=== PATIENT | male | born 1985 | race Caucasian/White ===

== ENCOUNTER 2016-07-26 23:15 | Inpatient (IN) | payer BC ==
--- NOTE | ~2016-07-26 | DS ---
Discharge Summary [facility] [address] [place]. [address] NAME: RADHA HENDERSON II : 81 STATUS : DIS IN PAT#: [id number] AGE: 30 ADM/REG DATE : 07/27/16 MR#: [id number] REPORT SERV DATE: 08/01/16 DICTATED BY: SAVANNA ESCOBARRADHA EDJULIETH DATE: 07/31/16 REPORT STATUS : Draft TRANSCRIBED BY: MODL DATE: 07/31/16 ADMISSION DATE: 07/27/2016 DISCHARGE DATE: 07/31/2016 DISCHARGE DIAGNOSES: 1. Acute pulmonary embolism with pleuritic chest pain. 2. Metastatic testicular cancer. 3. Acute hypoxic respiratory failure. 4. Pancytopenia secondary to chemotherapy. 5. Constipation, resolved. CONSULTS: Hernandez Ramos M.D. BRIEF HISTORY OF PRESENT ILLNESS: The patient is a 30-year-old male with the above history, who presented to [facility] due to severe uncontrolled chest pain and shortness of breath. He had previously been placed on Eliquis for a recently diagnosed PE but was admitted for pain control. For detailed history and physical examination, please see Dr. Shafer's note from 07/26/2016. HOSPITAL COURSE: After admission, the patient was provided with IV pain control and was requiring supplemental oxygen. His heart rate was in the 130s to 140s on admission. He was given fluids, switched to Lovenox, and monitored. Since then, he has been able to wean down off oxygen, his heart rate has come down, and his pain has markedly improved. He did have a repeat CT done which showed slightly increased density in the basilar right lower lobe compatible with progressive atelectasis or infiltrate. There is also some atelectasis and minimal infiltrate in the basilar left lower lobe and lingula. Stable nodular densities in the right middle lobe compatible with the patient's known pulmonary metastatic disease. Lower extremity Dopplers were unremarkable, and currently the patient is doing well. He did have to stay a few extra days due to abdominal distention and constipation. Currently, he is stable for discharge. DISCHARGE MEDICATIONS: 1. Marinol 2.5 mg p.o. t.i.d. 2. Dulcolax p.r.n. constipation. 3. Lovenox 90 mg subcu q.12 hours. 4. Protonix 40 mg p.o. daily. 5. Hycodan syrup p.r.n. cough. 6. Tessalon 200 mg p.o. t.i.d. p.r.n. cough. 7. Zofran p.r.n. 8. Compazine p.r.n. 9. Ativan 1 mg p.o. q.8 hours p.r.n. nausea and vomiting. DISCHARGE INSTRUCTIONS: The patient will follow with Dr. Ramos. Discharge Summary [address] [facility] [place] [address] NAME: RADHA HENDERSON II : 81 STATUS : DIS IN PAT#: [id number] AGE: 30 ADM/REG DATE : 07/27/16 MR#: [id number] REPORT SERV DATE: 08/01/16 DICTATED BY: RADHA CORRALES II DATE: 07/31/16 REPORT STATUS : Draft TRANSCRIBED BY: YVROSE DATE: 07/31/16 MAK/YVROSE Radah Corrales II, MD / [id number] CC: MD Damon Falk II, MD
--- NOTE | ~2016-07-26 | HP ---
History And Physical [place] [id number] [facility] [place]. [address] NAME: RADHA DE DIOS II : 81 STATUS : ADM IN PAT#: [id number] AGE: 30 ADM/REG DATE : 07/27/16 MR#: [id number] REPORT SERV DATE: 07/27/16 DICTATED BY: COOKIERADHA JAYCE DATE: 07/27/16 REPORT STATUS : Draft TRANSCRIBED BY: MODL DATE: 07/27/16 DATE OF ADMISSION: 07/26/2016 POINT OF ENTRY: [facility] Emergency Department. PRIMARY ONCOLOGIST: Dr. Hernandez Ramos. PRIMARY UROLOGIST: Dr. Steele. CHIEF COMPLAINT: Chest pain and shortness of breath. HISTORY OF PRESENT ILLNESS: Mr. De Dios is a 30-year-old gentleman with a history of metastatic testicular cancer with known metastases to the lung, currently undergoing chemotherapy under the care of Dr. Hernandez Ramos, who was recently diagnosed with bilateral acute pulmonary emboli and started on Eliquis therapy, who presents to the emergency department today for worsening chest pain and shortness of breath. The patient was seen in clinic by Dr. Ramos yesterday. At that time, the patient was reporting some dyspnea on exertion as well as some right-sided pleuritic chest pain. CTA of the chest was undertaken, which showed right middle lobe, right lower lobe, as well as some right upper lobe segmental pulmonary arteries as well as evidence of some clot burden also in the left lower lobe pulmonary arteries. The patient was started on Eliquis therapy at that time. The patient states he is taking a total of three doses of Eliquis for his acute bilateral PE. Today, he noted that he was having worsening shortness of breath, primarily described as dyspnea on exertion as well as worsening right-sided pleuritic chest pain. This prompted him to present to the emergency department after he and his noted his heart rate was elevated into the one-teens, much above his baseline heart rate. Initial evaluation in the emergency department is notable for stable blood pressure; however, he was noted to be tachycardic in the 140s, but saturating well on room air. He was also noted to be tachypneic. Labs are otherwise unremarkable. Troponin was negative. EKG showed sinus tachycardia with no evidence of any acute ischemia or infarction. Chest x- ray was clear. He was subsequently admitted to the Hospitalist Service for further evaluation and management. The patient denies any recent fevers, night sweats, chills, cough, sputum production, abdominal pain, nausea, vomiting, diarrhea, constipation, dysuria, lower extremity edema, melena, hematochezia, or hemoptysis. COMPREHENSIVE REVIEW OF SYSTEMS: Otherwise negative unless listed in history of present illness. PREVIOUS MEDICAL HISTORY: 1. Metastatic testicular cancer. History And Physical [address] [address] NAME: RADHA DE DIOS II : 83 STATUS : ADM IN PAT#: [id number] AGE: 30 ADM/REG DATE : 07/27/16 MR#: [id number] REPORT SERV DATE: 07/27/16 DICTATED BY: RADHA GARY DATE: 07/27/16 REPORT STATUS : Draft TRANSCRIBED BY: YVROSE DATE: 07/27/16 2. Solitary functional kidney, status post right renal artery compromise. 3. Acute bilateral PE. SURGICAL HISTORY: 1. Right inguinal orchiectomy. 2. Lymph node dissection complicated by renal artery compromise. ALLERGIES: NO KNOWN DRUG ALLERGIES. HOME MEDICATIONS: 1. Eliquis 10 mg b.i.d. for seven days, then 5 mg b.i.d. 2. Tessalon Perles 200 mg t.i.d. p.r.n. 3. Bleomycin chemotherapy every week. 4. Marinol 2.5 mg t.i.d. 5. Etoposide chemotherapy regimen. 6. Lorazepam 1 mg q.8 hours p.r.n. 7. Zofran 8 mg sublingual q.8 hours p.r.n. 8. Protonix 40 mg daily. 9. Compazine 10 mg q.4 hours p.r.n. 10.Cisplatin chemotherapy regimen. 11.Hycodan syrup 5 mL p.o. b.i.d. p.r.n. SOCIAL HISTORY: He denied any tobacco, alcohol, or illicits. He works as a retail account manager. FAMILY MEDICAL HISTORY: Mother is healthy. Father with history of hypertension and melanoma. Siblings are healthy. LABS AND IMAGIN. White count is 3.4, hemoglobin is 11.5, hematocrit is 31.6, platelet count is 313. INR 1.3. 2. Sodium is 137, potassium 4.5, chloride 100, carbon dioxide 26, BUN 20, creatinine 1.37, glucose is 108, calcium is 8.8, magnesium is 2.1. 3. Troponin is less than 0.02. 4. Chest x-ray per my review shows poor inspiration and low lung volumes, but no evidence of any focal infiltrate or consolidation. 5. CT of the chest from 07/25/2016, shows right middle lobe, right lower lobe, as well as right upper lobe segmental pulmonary artery emboli as well as some evidence of embolic burden in arteries serving the left lower lobe. PHYSICAL EXAMINATION: VITAL SIGNS: Temperature is 98.3 degrees Fahrenheit, pulse is 140, respirations 26, saturating 90% on room air. Blood pressure 126/77, on recheck blood pressure is now 125/87; heart rate is 115; saturating 100% on 2 L by nasal cannula. GENERAL: The patient is awake, alert, in no acute distress. Resting comfortably in bed. He is a well-developed, well-nourished male. is at bedside. HEENT: Atraumatic, normocephalic. Moist mucous membranes. Pupils are equal, round, History And Physical [address] [address] NAME: RADHA DE DIOS II : 81 STATUS : ADM IN [facility]#: [id number] AGE: 30 ADM/REG DATE : 07/27/16 MR#: [id number] REPORT SERV DATE: 07/27/16 DICTATED BY: RADHA GARY DATE: 07/27/16 REPORT STATUS : Draft TRANSCRIBED BY: MODL DATE: 07/27/16 reactive to light and accommodation. Extraocular eye movements intact. No scleral icterus. NECK: No jugular venous distention or carotid bruits. CARDIAC: Tachycardic rate, regular rhythm. No murmurs or gallops. Normal S1, S2. LUNGS: On oxygen, in no respiratory distress, but is mildly tachypneic. The patient has poor inspiratory lung volumes secondary to splinting and pain. I do not appreciate any wheezes, rhonchi, or crackles. ABDOMEN: Soft, nontender, nondistended with good bowel sounds. No rebound, guarding, or rigidity. EXTREMITIES: Warm and well perfused. No cyanosis, clubbing, or edema. SKIN: Warm and dry. PSYCH: Affect appropriate. NEURO: Alert and oriented x3. Cranial nerves 2 through 12 grossly intact. Speech is normal. Gait not assessed. ASSESSMENT: Mr. De Dios is a 30-year-old gentleman with a recent diagnosis of acute bilateral pulmonary embolus, who presents with worsening pleuritic chest pain and shortness of breath. PROBLEM LIST: 1. Acute bilateral pulmonary embolism. 2. Severe pleuritic chest pain and shortness of breath. 3. Solitary functional kidney. 4. Metastatic testicular cancer. PLAN: 1. Acute bilateral PE. We will admit the patient to the Hospitalist Service. We will convert his Eliquis over to subcu full-dose Lovenox given his history of malignancy. We will check an echocardiogram to evaluate for any RV strain or dysfunction. Given the patient's worsening pleuritic chest pain and shortness of breath, we will check a stat CT scan of the chest without IV contrast to evaluate for potential complication of his known PE such as pulmonary infarction with or without hemorrhagic compromise, but our main goal will be to address the patient's pain needs. 2. Metastatic testicular cancer, per Oncology. 3. Solitary functional kidney. Avoid nephrotoxic medications. The patient's GFR does allow him to be placed on Lovenox here during this hospitalization. 4. DVT prophylaxis. Therapeutic anticoagulation with Lovenox. CODE STATUS: The patient wished to be full code. LUCI/YVROSE Radha Gary MD / [id number] History And Physical [address] [address] NAME: RADHA DE DIOS II : 83 STATUS : ADM IN [facility]#: [id number] AGE: 30 ADM/REG DATE : 07/27/16 MR#: [id number] REPORT SERV DATE: 07/27/16 DICTATED BY: RADHA GARY DATE: 07/27/16 REPORT STATUS : Draft TRANSCRIBED BY: MODL DATE: 07/27/16 CC: Damon S. MD Hernandez Parikh M.D. Fabián Steele III, M.D.
[2016-07-26 22:11] LABS: BASOPHILS 0 %; EOSINOPHILS 0 %; HEMATOCRIT 31.6 % (40.0-51.0); HEMOGLOBIN 11.5 g/dL (13.6-17.8); IMMATURE GRANULOCYTES 0.3 %; IMMATURE GRANULOCYTES ABSOLUTE 0.01 10/3/uL (0.0-0.11); LYMPHOCYTES 14.3 %; LYMPHOCYTES ABSOLUTE 0.48 10/3/uL (0.67-4.30); MANUAL DIFF NO %; MEAN CORPUS HGB CONC 36.4 g/dL (32.0-36.0); MEAN CORPUSCULAR HEMOGLOB 30.5 pg (26.0-34.0); MEAN CORPUSCULAR VOLUME 83.8 fL (80-100); MEAN PLATELET VOLUME 8.6 fL (9.2-13.0); MONOCYTES 4.2 %; MONOCYTES ABSOLUTE 0.14 10/3/uL (0.21-1.20); NEUTROPHILS 81.2 %; NEUTROPHILS ABSOLUTE 2.72 10/3/uL (2.02-8.40); PLATELET COUNT 313 10/3/uL (150-400); RBC DISTRIBUTION WIDTH 13.5 % (12.0-16.0); RED CELL COUNT 3.77 10/6/uL (4.7-6.1); WHITE BLOOD CELLS 3.4 10/3/uL (4.5-10.5)
[2016-07-26 22:23] LABS: INTERNATIONAL NORMAL RATI 1.3 UNITS (-); PARTIAL THROMBO TIME 27.2 SEC (22.5-37.2); PROTIME (NOT ORD) 15.6 SEC (12.0-14.5)
[2016-07-26 22:28] LABS: CALCIUM, SERUM 8.8 MG/DL (8.5-10.4); CHEST PAIN PROFILE TAT 0 Hrs 23 Mins; CHLORIDE, SERUM 100 MMOL/L (96-112); CO2 (CARBON DIOXIDE) 26 MMOL/L (24-34); CREATININE 1.37 MG/DL (0.70-1.30); GFR AFRICAN AMERICAN 79 ML/MIN (>=60); GFR NON AFRICAN AMERICAN 68 ML/MIN (>=60); GLUCOSE, SERUM 108 MG/DL (60-99); POTASSIUM, SERUM 4.5 MMOL/L (3.5-5.3); SODIUM, SERUM 137 MMOL/L (135-148); TROPONIN I <0.02 NG/ML (<0.05)
[2016-07-26 22:29] LABS: BUN (BLOOD UREA NITROGEN) 20 MG/DL (6-23)
[~2016-07-26 23:15] MED LIST: BLEOMYCIN IV; CISPLATIN IV; ELIQUIS 5 MG TAB5 MG PO; ETOPOPHOS100 MG IV; HYCODAN SYRUP PO; LEVAQUIN5T PO; MOTRIN IB200 MG PO; NORCO1 TAB PO; PR25 PO; PROTONIX PO; ULTRAM50 PO
[2016-07-26] MEDS ORDERED: TESSALON200 MG PO (23:16)
[2016-07-26] MEDS ORDERED: ZOFRANODT8 SL (23:16)
[2016-07-26] MEDS ORDERED: COMP10B PO (23:17)
[2016-07-26] MEDS ORDERED: ATV1 PO (23:18)
[2016-07-26] MEDS ORDERED: MARI2.5 PO (23:25)
[2016-07-26] MEDS ORDERED: AUG875 PO (23:25)
[2016-07-26] MEDS ORDERED: ELIQUIS 5 MG TAB5 MG PO (23:29)
[2016-07-27 05:36] LABS: BASOPHILS 0 %; EOSINOPHILS 0 %; HEMATOCRIT 26.3 % (40.0-51.0); HEMOGLOBIN 9.2 g/dL (13.6-17.8); LYMPHOCYTES 19.7 %; LYMPHOCYTES ABSOLUTE 0.41 10/3/uL (0.67-4.30); MANUAL DIFF NO %; MEAN CORPUSCULAR HEMOGLOB 29.7 pg (26.0-34.0); MEAN CORPUSCULAR VOLUME 84.8 fL (80-100); MEAN PLATELET VOLUME 8.7 fL (9.2-13.0); MONOCYTES 7.2 %; MONOCYTES ABSOLUTE 0.15 10/3/uL (0.21-1.20); NEUTROPHILS 73.1 %; NEUTROPHILS ABSOLUTE 1.52 10/3/uL (2.02-8.40); PLATELET COUNT 254 10/3/uL (150-400); RBC DISTRIBUTION WIDTH 13.6 % (12.0-16.0); WHITE BLOOD CELLS 2.1 10/3/uL (4.5-10.5)
[2016-07-27 05:43] LABS: BUN (BLOOD UREA NITROGEN) 23 MG/DL (6-23); CALCIUM, SERUM 8.5 MG/DL (8.5-10.4); CHLORIDE, SERUM 105 MMOL/L (96-112); CO2 (CARBON DIOXIDE) 25 MMOL/L (24-34); CREATININE 1.23 MG/DL (0.70-1.30); GFR AFRICAN AMERICAN 89 ML/MIN (>=60); GFR NON AFRICAN AMERICAN 77 ML/MIN (>=60); GLUCOSE, SERUM 107 MG/DL (60-99); POTASSIUM, SERUM 4.2 MMOL/L (3.5-5.3); SODIUM, SERUM 137 MMOL/L (135-148)
[2016-07-29 06:40] LABS: HEMATOCRIT 25.6 % (40.0-51.0); MEAN CORPUS HGB CONC 35.2 g/dL (32.0-36.0); MEAN CORPUSCULAR HEMOGLOB 29.4 pg (26.0-34.0); MEAN CORPUSCULAR VOLUME 83.7 fL (80-100); MEAN PLATELET VOLUME 8.9 fL (9.2-13.0); RBC DISTRIBUTION WIDTH 13.4 % (12.0-16.0); RED CELL COUNT 3.06 10/6/uL (4.7-6.1)
[2016-07-29 06:46] LABS: MANUAL DIFF YES %; PLATELET COUNT 170 10/3/uL (150-400); WHITE BLOOD CELLS 0.8 10/3/uL (4.5-10.5)
[2016-07-29 06:53] LABS: BUN (BLOOD UREA NITROGEN) 20 MG/DL (6-23); CALCIUM, SERUM 9.1 MG/DL (8.5-10.4); CHLORIDE, SERUM 101 MMOL/L (96-112); CO2 (CARBON DIOXIDE) 25 MMOL/L (24-34); CREATININE 1.17 MG/DL (0.70-1.30); GFR AFRICAN AMERICAN 95 ML/MIN (>=60); GFR NON AFRICAN AMERICAN 82 ML/MIN (>=60); GLUCOSE, SERUM 119 MG/DL (60-99); POTASSIUM, SERUM 4.2 MMOL/L (3.5-5.3); SODIUM, SERUM 136 MMOL/L (135-148)
[2016-07-29 07:49] LABS: BAND NEUTROPHILS 10 %; LYMPHOCYTES 23 %; LYMPHOCYTES ABSOLUTE (CALC) 0.18 10/3/uL (0.67-4.30); MONOCYTES 8 %; MONOCYTES ABSOLUTE (CALC) 0.06 10/3/uL (0.21-1.20); NEUTROPHILS ABSOLUTE (CALC) 0.55 10/3/uL (2.02-8.40); PLATELET ESTIMATE ADQ (ADEQUATE); RBC MORPHOLOGY NORM (NORMAL); SEGMENTED NEUTROPHIL (0) 60 %; TOTAL NUCLEATED CELLS 52
[2016-07-30 06:17] LABS: HEMOGLOBIN 8.3 g/dL (13.6-17.8); MEAN CORPUS HGB CONC 36.4 g/dL (32.0-36.0); MEAN CORPUSCULAR HEMOGLOB 30.3 pg (26.0-34.0); MEAN CORPUSCULAR VOLUME 83.2 fL (80-100); MEAN PLATELET VOLUME 9.2 fL (9.2-13.0); PLATELET COUNT 158 10/3/uL (150-400); RBC DISTRIBUTION WIDTH 13.7 % (12.0-16.0); RED CELL COUNT 2.74 10/6/uL (4.7-6.1)
[2016-07-30 06:22] LABS: HEMATOCRIT 22.8 % (40.0-51.0); MANUAL DIFF YES %; WHITE BLOOD CELLS 0.6 10/3/uL (4.5-10.5)
[2016-07-30 06:32] LABS: BUN (BLOOD UREA NITROGEN) 20 MG/DL (6-23); CALCIUM, SERUM 8.9 MG/DL (8.5-10.4); CHLORIDE, SERUM 102 MMOL/L (96-112); CO2 (CARBON DIOXIDE) 26 MMOL/L (24-34); CREATININE 1.11 MG/DL (0.70-1.30); GFR AFRICAN AMERICAN 101 ML/MIN (>=60); GFR NON AFRICAN AMERICAN 87 ML/MIN (>=60); POTASSIUM, SERUM 3.8 MMOL/L (3.5-5.3); SODIUM, SERUM 138 MMOL/L (135-148)
[2016-07-30 06:34] LABS: GLUCOSE, SERUM 92 MG/DL (60-99)
[2016-07-30 07:51] LABS: LYMPHOCYTES 31 %; LYMPHOCYTES ABSOLUTE (CALC) 0.19 10/3/uL (0.67-4.30); MONOCYTES 11 %; MONOCYTES ABSOLUTE (CALC) 0.07 10/3/uL (0.21-1.20); NEUTROPHILS ABSOLUTE (CALC) 0.35 10/3/uL (2.02-8.40); SEGMENTED NEUTROPHIL (0) 58 %; TOTAL NUCLEATED CELLS 100
[2016-07-30 07:52] LABS: PLATELET ESTIMATE ADQ (ADEQUATE); RBC MORPHOLOGY NORM (NORMAL)
[2016-07-31] MEDS ORDERED: BIST PO (10:51)
[2016-07-31] MEDS ORDERED: LOVENOX1C SC (10:55)
[2016-08-01] MEDS ORDERED: DIL2TAB PO (23:37)
[2017-01-25] MEDS ORDERED: PR25 PO (10:44)
[2017-01-25] MEDS ORDERED: NORCO1 TAB PO (10:46)
== END 2016-07-31 13:46 | disposition home or self-care (01) | DRG 175 ==
LOC: ER 23:15 → 5NO 07-27 00:52
PROVIDERS: Emergency Medicine; Internal Medicine
DX: I26.99 Other pulmonary embolism without acute cor pulmonale (principal); J96.01 Acute respiratory failure with hypoxia; D61.810 Antineoplastic chemotherapy induced pancytopenia; C78.00 Secondary malignant neoplasm of unspecified lung; Z85.47 Personal history of malignant neoplasm of testis; Z82.49 Family history of ischemic heart disease and other diseases of the circulatory system; Z79.899 Other long term (current) drug therapy; Z98.890 Other specified postprocedural states
CPT/HCPCS: 71010; 71250; 71275; 74000; 80048; 83735; 84484; 85025; 85610; 85730; 93005; 93306; 93970; 96372; 96374; 96375; 99285; A9270-GY; J1170; J1885; J2405; Q9967

== ENCOUNTER 2016-08-01 23:15 | Inpatient (IN) | payer BC ==
--- NOTE | ~2016-08-01 | HP ---
History And Physical [place] [address] [facility] [place]. [address] NAME: RADHA HENDERSON II : 81 STATUS : ADM IN [facility]#: [id number] AGE: 30 ADM/REG DATE : 08/01/16 MR#: [id number] REPORT SERV DATE: 08/02/16 DICTATED BY: KEMAR BALDERAS DATE: 08/02/16 REPORT STATUS : Draft TRANSCRIBED BY: MODEsthela DATE: 08/02/16 DATE OF ADMISSION: 08/01/2016 POINT OF ENTRY: [facility] Emergency Department, direct admit to the Oncology 5 East floor. PRIMARY ONCOLOGIST: Hernandez Ramos M.D. PRIMARY UROLOGIST: Fabián Steele M.D. CHIEF COMPLAINT: Fever. HISTORY OF PRESENT ILLNESS: This is a 30-year-old gentleman with medical history of metastatic testicular cancer with known metastasis to the lungs, currently undergoing chemotherapy who was recently discharged from the hospital on 07/31/2016. During that admission, he was found to have acute bilateral PE. The patient was switched from Eliquis to Lovenox and subsequently discharged home. The patient reports that he was doing okay. He went to his primary oncologist on the morning of presentation where he was administered a chemotherapy. The patient was found a repeat lab after chemotherapy noted the patient to have WBC of 0.5. The patient was advised that if he develops high fever, to come to the emergency room department. The patient reports that after getting home, he continued to have worsening cough, productive of yellowish sputum. There was associated fever and shortness of breath. The patient reports that the temperature was about 101 at home, hence, the decided to bring the patient into the hospital for further evaluation. There was no associated dysuria, frequency, or urgency. No abdominal pain. No nausea. No vomiting. The patient reports constipation but denies any diarrhea, nausea, or vomiting. The patient also denies any nasal congestion. Denies any headache, neck stiffness. Denies any history of contact with any patient with acute febrile illness. PAST MEDICAL HISTORY: 1. Acute bilateral PE, currently on Lovenox. 2. Metastatic testicular cancer, on chemotherapy. 3. Pancytopenia. 4. Constipation. 5. History of solitary functioning kidney, status post right renal artery stenosis. PAST SURGICAL HISTORY: 1. Right inguinal orchiectomy. 2. Lymph node dissection complicated by renal artery compromise. ALLERGIES: NO KNOWN DRUG ALLERGIES. HOME MEDICATIONS: 1. Bleomycin 30 units IV every seven days, administered on Monday by [facility]. History And Physical [address] [address] NAME: RADHA HENDERSON II : 83 STATUS : ADM IN PAT#: [id number] AGE: 30 ADM/REG DATE : 08/01/16 MR#: [id number] REPORT SERV DATE: 08/02/16 DICTATED BY: KEMAR BALDERAS DATE: 08/02/16 REPORT STATUS : Draft TRANSCRIBED BY: YVROSE DATE: 08/02/16 2. Etoposide phosphate mg IV daily times five days, every 21 days. 3. Cisplatin mg IV daily for five days, every 21 days. 4. Hycodan syrup 5 mL p.o. b.i.d. p.r.n. for cough. 5. Protonix 40 mg p.o. daily. 6. Benzoate 200 mg p.o. b.i.d. 7. Ondansetron 8 mg p.o. every eight hours. 8. Compazine 10 mg p.o. every four hours p.r.n. 9. Lorazepam 1 mg p.o. every eight hours p.r.n. 10.Marinol 2.5 mg p.o. t.i.d. 11.Dulcolax 10 mg p.o. b.i.d. p.r.n. 12.Lovenox 100 mg per meal, 90 mg subcu b.i.d. 13.Dilaudid 2 mg tab p.o. every six hours p.r.n. 14.Per the the patient also takes dexamethasone 4 mg p.o. b.i.d. to be taken for six days postchemotherapy. SOCIAL HISTORY: Denies smoking cigarettes, drinking alcohol, or illicit drug use. The patient works as a retail store assistant, currently lives with his at home, who was at the bedside at the time of this interview. FAMILY HISTORY: Significant for mother who is healthy, father with history of hypertension and melanoma, siblings are healthy. REVIEW OF SYSTEMS: A 12-point review of systems performed essentially negative, positive findings as per HPI. PHYSICAL EXAMINATION: VITAL SIGNS: Temperature 102.3, blood pressure 113/63, pulse rate 135 beats per minute, respiratory rate 94 on room air. GENERAL: Lying in bed in mild respiratory distress with mild pain distress. HEENT: Normocephalic, atraumatic. Extraocular muscle intact. Pupils equal, round, and reactive. Not pale. Anicteric. Not jaundiced. NECK: Supple with submandibular lymphadenopathy. No JVD. Oral mucosa moist. CHEST: Equal expansion. LUNGS: Diffuse expiratory wheezes with rhonchi at the lower lung base. CARDIOVASCULAR: Regular rate and rhythm. S1 and S2. No murmur. No rubs. No gallops. Tachycardic. ABDOMEN: Bowel sounds hypoactive, distended. No palpably enlarged organomegaly. EXTREMITIES: Lower extremities, no pedal edema. Peripheral pulses palpable. NEUROLOGIC: Alert and oriented x3. Cranial nerves II through XII intact. Strength in all extremities 5/5. LABORATORY DATA: 1. WBC, chemistry, procalcitonin, lactate, blood culture x2, sputum culture x2, hematology, urinalysis/reflex urine culture ordered. 2. Chest x-ray ordered, KUB ordered. SUMMARY: This is a 30-year-old gentleman with medical history significant for metastatic History And Physical [address] [address] NAME: RADHA HENDERSON II : 81 STATUS : ADM IN [facility]#: [id number] AGE: 30 ADM/REG DATE : 08/01/16 MR#: [id number] REPORT SERV DATE: 08/02/16 DICTATED BY: KEMAR BALDERAS DATE: 08/02/16 REPORT STATUS : Draft TRANSCRIBED BY: YVROSE DATE: 08/02/16 testicular cancer with acute PE, on Lovenox, who presented to the hospital with complaints of neutropenia and fever concerning for neutropenic fever, found to have cough productive of yellow sputum, also concerning for possible healthcare-associated pneumonia. ASSESSMENT AND PLAN: 1. Neutropenic sepsis, likely source questionable healthcare-associated pneumonia. The patient presented with cough productive of yellowish sputum. At this point, we will obtain a chest x-ray. We will obtain blood cultures. We will obtain a WBC. I will start the patient on broad-spectrum empiric antibiotics with vancomycin and cefepime after blood cultures taken. Sputum cultures have been ordered. Urine Legionella and urine streptococcal antigen ordered. We will continue oxygen supplementation at this time. We will continue incentive spirometry and duo nebs as needed p.r.n. 2. Acute bilateral pulmonary embolism. We will continue the patient's home dose of Lovenox. 3. Testicular cancer. We will defer continuous management to primary oncologist. 4. Constipation. We will order a KUB. We will encourage the patient to have laxatives as ordered. 5. History of pancytopenia. We will repeat the patient's Hematology to assess the level of anemia. We will also type and screen at this time. 6. Admission Disposition: [facility]. 7. Admission Status: Inpatient. 8. DVT Prophylaxis: Contraindicated as the patient is currently on anticoagulation. 9. Code Status: Full code. IOO/MODL Kemar Balderas MD / [id number] CC: MD Fabián Falk II, III, M.D. Davey B. Daniel, M.D.
--- NOTE | ~2016-08-01 | PUL ---
[place] [address] [place]. [address] NAME: RADHA HENDERSON II : 81 STATUS : ADM IN [facility]#: [id number] AGE: 30 ADM/REG DATE : 08/01/16 MR#: [id number] REPORT SERV DATE: 08/05/16 DICTATED BY: PENG HAND DATE: 08/05/16 REPORT STATUS : Draft TRANSCRIBED BY: MODL DATE: 08/05/16 PULMONARY FUNCTION TEST DIAGNOSIS: Pulmonary embolism. PROCEDURE: Spirometry and DLCO. DESCRIPTION: The patient's effort is adequate. Spirogram ratio is 0.82. FEV1 1.62 L or 38% and FVC 1.97 L or 37%. DLCO is 5.7 or 16% and it does not completely correct for alveolar volume. The patient had a good patient effort, but had some breathing difficulty due to pain. This was done as an inpatient. IMPRESSION: No evidence of large airways obstruction. Possible lung restriction and severely reduced DLCO. However, interpret numbers with caution since there appears to be a suboptimal effort due to a very non-smooth contour of both the expiratory and inspiratory limbs. CEP/MODL Peng Hand DO / [id number] CC: MD ASHLYN Pearl SHAGUFTA YASMIN Davey B. Daniel, M.D.
--- NOTE | ~2016-08-01 | DS ---
Discharge Summary [facility] [address] [facility] [place]. [address] NAME: RADHA HENDERSON II : 81 STATUS : DIS IN PAT#: [id number] AGE: 30 ADM/REG DATE : 08/01/16 MR#: [id number] REPORT SERV DATE: 08/06/16 DICTATED BY: MARTIN ESTRELLA DATE: 08/06/16 REPORT STATUS : Draft TRANSCRIBED BY: MODL DATE: 08/06/16 ADMISSION DATE: 08/01/2016 DISCHARGE DATE: 08/06/2016 CHIEF COMPLAINT ON ADMISSION: Fever. DISCHARGING DIAGNOSES: 1. Febrile neutropenia. 2. Left lower lobe pneumonia due to Moraxella. 3. Sepsis on admission, likely due to pneumonia. 4. Pulmonary embolism of the right lung. 5. Pleuritic chest pain on the left and dyspnea on exertion. 6. Metastatic testicular cancer. 7. Constipation. 8. Anemia. HISTORY OF PRESENT ILLNESS: Please see full H and P by Dr. Uribe from admission. HOSPITAL COURSE: 1. Febrile neutropenia with sepsis and left lower lobe pneumonia due to Moraxella. The patient was treated initially with empiric antibiotics with cefepime. Later, sputum culture did come back with Moraxella and his white count did resolve. He is no longer neutropenic. We will treat him with a p.o. course of Levaquin for a complete course of seven days. 2. Pulmonary embolism. The patient will be discharged on Eliquis. He was on Lovenox while hospitalized. 3. Pleuritic chest pain, likely due to left lower lobe pneumonia. The patient has also had dyspnea on exertion. This is all likely related to his pneumonia. He has been treated with narcotics as well as Toradol and steroids. Currently, his pain is better and he is stable for discharge home. 4. Metastatic testicular cancer. Follow up with Dr. Ramos as an outpatient. 5. Constipation. He will be discharged home pending bowel movement for today. 6. Anemia. The patient has been anemic in the low 7s. He did not require any transfusions. His hemoglobin is stable at this time at 7.6. He may follow up with Dr. Ramos and follow with counts. DISCHARGE MEDICATIONS: 1. Marinol 2.5 p.o. t.i.d. 2. Dexamethasone 4 mg p.o. b.i.d. for two days, then 4 mg once daily for two days, then stop. 3. Levofloxacin 750 mg p.o. daily for four days. 4. Protonix 40 mg daily. 5. Tessalon Perles p.r.n. 6. Zofran p.r.n. 7. Hycodan syrup p.r.n. cough. 8. Compazine p.r.n. Discharge Summary [address] [address] NAME: RADHA HENDERSON II : 81 STATUS : DIS IN PAT#: [id number] AGE: 30 ADM/REG DATE : 08/01/16 MR#: [id number] REPORT SERV DATE: 08/06/16 DICTATED BY: MARTIN ESTRELLA DATE: 08/06/16 REPORT STATUS : Draft TRANSCRIBED BY: YVROSE DATE: 08/06/16 9. Ativan p.r.n. 10.Dulcolax p.r.n. 11.Dilaudid p.r.n. 12.Eliquis 5 mg p.o. b.i.d. PERTINENT IMAGING IN THIS ADMISSION: 1. Echocardiogram: Left ventricular systolic function, intact at 51%, left ventricular diastolic function intact. Normal right ventricle size and function. No significant valvular dysfunction. CT chest on 08/04/2016, impression; no evidence of pulmonary fibrosis. 2. Interval development of segmental consolidation in the dependent left lung, new since prior exam from eight days earlier and mild right basilar subsegmental atelectasis. New trace pleural effusion as well. 3. Stable lateral right middle lobe pulmonary nodules, largest measuring 1.5 cm x 1.2 cm. 4. Small pericardial effusion. 5. Incompletely visualized supraumbilical ventral wall hernia containing a portion of bowel. 6. Known right hilar 11R adenopathy. It is difficult to delineate on this noncontrast exam. Last chest x-ray on 08/03/2016, impression; shallow inspiration with minimal basilar atelectasis, left greater than right. Otherwise, no acute cardiopulmonary abnormality. Left lower extremity Doppler is negative for DVT. PERTINENT LABORATORY DATA: At the time of discharge, white blood cell count 18.9, hemoglobin 7.6, platelet count of 300. BMP grossly unremarkable, except for creatinine of 1.2. Time spent on this discharge is greater than 30 minutes. DNK/MODL Martin Estrella MD / [id number] CC: MD ASHLYN Pearl SHAGUFTA YASMIN
[~2016-08-01 23:15] MED LIST changes: +ATV1 PO; +AUG875 PO; +BIST PO; +COMP10B PO; +LOVENOX1C SC; +MARI2.5 PO; +TESSALON200 MG PO; +ZOFRANODT8 SL
[2016-08-01] MEDS ORDERED: DIL2TAB PO (23:37)
[2016-08-02 01:04] LABS: HEMATOCRIT 24.1 % (40.0-51.0); HEMOGLOBIN 8.7 g/dL (13.6-17.8); MEAN CORPUS HGB CONC 36.1 g/dL (32.0-36.0); MEAN CORPUSCULAR HEMOGLOB 30.2 pg (26.0-34.0); MEAN CORPUSCULAR VOLUME 83.7 fL (80-100); MEAN PLATELET VOLUME 9.3 fL (9.2-13.0); PLATELET COUNT 173 10/3/uL (150-400); RBC DISTRIBUTION WIDTH 13.8 % (12.0-16.0); RED CELL COUNT 2.88 10/6/uL (4.7-6.1)
[2016-08-02 01:06] LABS: MANUAL DIFF YES %
[2016-08-02 01:14] LABS: A/G RATIO 0.7 (0.7-1.9); ALBUMIN 3.2 G/DL (3.5-5.0); ALKALINE PHOSPHATASE 55 U/L (45-117); CALCIUM, SERUM 8.9 MG/DL (8.5-10.4); CHLORIDE, SERUM 99 MMOL/L (96-112); CO2 (CARBON DIOXIDE) 24 MMOL/L (24-34); GFR AFRICAN AMERICAN 70 ML/MIN (>=60); GFR NON AFRICAN AMERICAN 61 ML/MIN (>=60); GLOBULIN 4.3 G/DL (2.5-4.1); GLUCOSE, SERUM 103 MG/DL (60-99); POTASSIUM, SERUM 3.7 MMOL/L (3.5-5.3); SGOT(AST) 7 U/L (5-40); SGPT(ALT) 26 U/L (5-65); SODIUM, SERUM 136 MMOL/L (135-148); TOTAL PROTEIN 7.5 G/DL (6.0-8.5)
[2016-08-02 01:16] LABS: BUN (BLOOD UREA NITROGEN) 13 MG/DL (6-23)
[2016-08-02 01:36] LABS: LYMPHOCYTES 50 %; MONOCYTES 30 %; SEGMENTED NEUTROPHIL (0) 20 %; TOTAL NUCLEATED CELLS 10
[2016-08-02 01:37] LABS: PLATELET ESTIMATE ADQ (ADEQUATE); RBC MORPHOLOGY NORM (NORMAL)
[2016-08-02 01:46] LABS: PROCALCITONIN 0.54 ng/mL (<0.5)
[2016-08-02 02:42] LABS: INFLUENZA A SCREEN NEGATIVE (NEGATIVE); INFLUENZA B SCREEN NEGATIVE (NEGATIVE)
[2016-08-02 04:58] LABS: FREE T4 1.77 NG/DL (0.76-1.46); PHOSPHORUS, SERUM 2.4 MG/DL (2.5-4.5); ULTRASENSITIVE TSH 0.361 MCIU/ML (0.358-3.740)
[2016-08-02 06:56] LABS: ASCORBIC ACID (UR NOT ORDER) NEG (NEG); BILIRUBIN, URINE NEGATIVE (NEG); KETONE, URINE NEGATIVE (NEG); LEUKOCYTE ESTERASE(NOT OR NEG (NEG); WBC (NOT ORDERED) (RFLEX) 8 (0-5)
[2016-08-03 06:40] LABS: MEAN CORPUS HGB CONC 36.3 g/dL (32.0-36.0); MEAN CORPUSCULAR HEMOGLOB 29.7 pg (26.0-34.0); MEAN PLATELET VOLUME 9.5 fL (9.2-13.0); NUCLEATED RED BLOOD CELLS 2.3 /100WBC (0-0); PLATELET COUNT 171 10/3/uL (150-400); RBC DISTRIBUTION WIDTH 14.4 % (12.0-16.0)
[2016-08-03 06:41] LABS: BUN (BLOOD UREA NITROGEN) 16 MG/DL (6-23); CHLORIDE, SERUM 101 MMOL/L (96-112); CO2 (CARBON DIOXIDE) 25 MMOL/L (24-34); GLUCOSE, SERUM 111 MG/DL (60-99); HEMATOCRIT 18.2 % (40.0-51.0); HEMOGLOBIN 6.6 g/dL (13.6-17.8); POTASSIUM, SERUM 4.3 MMOL/L (3.5-5.3); RED CELL COUNT 2.22 10/6/uL (4.7-6.1); SODIUM, SERUM 133 MMOL/L (135-148)
[2016-08-03 06:42] LABS: CALCIUM, SERUM 9.1 MG/DL (8.5-10.4); CREATININE 0.97 MG/DL (0.70-1.30); GFR AFRICAN AMERICAN 119 ML/MIN (>=60); GFR NON AFRICAN AMERICAN 103 ML/MIN (>=60)
[2016-08-03 06:43] LABS: MANUAL DIFF YES %; WHITE BLOOD CELLS 1.7 10/3/uL (4.5-10.5)
[2016-08-03 08:02] LABS: BAND NEUTROPHILS 7 %; IMMATURE GRANS ABSOLUTE (CALC) 0.03 10/3/uL (0.0-0.11); LYMPHOCYTES 12 %; METAMYELOCYTES 2 %; MONOCYTES 29 %; MONOCYTES ABSOLUTE (CALC) 0.49 10/3/uL (0.21-1.20); NEUTROPHILS ABSOLUTE (CALC) 0.97 10/3/uL (2.02-8.40); PLATELET ESTIMATE ADQ (ADEQUATE); SEGMENTED NEUTROPHIL (0) 50 %; TOTAL NUCLEATED CELLS 100
[2016-08-03 08:03] LABS: RBC MORPHOLOGY NORM (NORMAL)
[2016-08-03 13:43] LABS: HEMATOCRIT 19.7 % (40.0-51.0); HEMOGLOBIN 7.2 g/dL (13.6-17.8)
[2016-08-04 05:16] LABS: HEMOGLOBIN 7.5 g/dL (13.6-17.8); MEAN CORPUS HGB CONC 35.9 g/dL (32.0-36.0); MEAN CORPUSCULAR HEMOGLOB 29.5 pg (26.0-34.0); MEAN CORPUSCULAR VOLUME 82.3 fL (80-100); MEAN PLATELET VOLUME 9.8 fL (9.2-13.0); NUCLEATED RED BLOOD CELLS 1.3 /100WBC (0-0); RBC DISTRIBUTION WIDTH 14.1 % (12.0-16.0); RED CELL COUNT 2.54 10/6/uL (4.7-6.1)
[2016-08-04 05:18] LABS: HEMATOCRIT 20.9 % (40.0-51.0); PLATELET COUNT 267 10/3/uL (150-400); WHITE BLOOD CELLS 6.7 10/3/uL (4.5-10.5)
[2016-08-04 05:19] LABS: MANUAL DIFF YES %
[2016-08-04 05:22] LABS: BUN (BLOOD UREA NITROGEN) 18 MG/DL (6-23); CALCIUM, SERUM 8.8 MG/DL (8.5-10.4); CHLORIDE, SERUM 100 MMOL/L (96-112); CO2 (CARBON DIOXIDE) 24 MMOL/L (24-34); CREATININE 1.11 MG/DL (0.70-1.30); GFR AFRICAN AMERICAN 101 ML/MIN (>=60); GFR NON AFRICAN AMERICAN 87 ML/MIN (>=60); GLUCOSE, SERUM 122 MG/DL (60-99); PHOSPHORUS, SERUM 2.8 MG/DL (2.5-4.5); SODIUM, SERUM 133 MMOL/L (135-148)
[2016-08-04 06:45] LABS: BAND NEUTROPHILS 32 %; IMMATURE GRANS ABSOLUTE (CALC) 1.07 10/3/uL (0.0-0.11); LYMPHOCYTES 11 %; LYMPHOCYTES ABSOLUTE (CALC) 0.74 10/3/uL (0.67-4.30); METAMYELOCYTES 10 %; MONOCYTES 9 %; MYELOCYTES 5 %; NEUTROPHILS ABSOLUTE (CALC) 4.29 10/3/uL (2.02-8.40); PROMYELOCYTES 1 % (0); SEGMENTED NEUTROPHIL (0) 32 %; TOTAL NUCLEATED CELLS 100
[2016-08-04 06:46] LABS: PLATELET ESTIMATE ADQ (ADEQUATE); POLYCHROMASIA 1+ (2-5/OIF) (0-1/OIF)
[2016-08-05 06:53] LABS: HEMOGLOBIN 8.5 g/dL (13.6-17.8); MEAN CORPUSCULAR HEMOGLOB 29.8 pg (26.0-34.0); MEAN CORPUSCULAR VOLUME 82.8 fL (80-100); MEAN PLATELET VOLUME 9.3 fL (9.2-13.0); PLATELET COUNT 327 10/3/uL (150-400); RBC DISTRIBUTION WIDTH 14.6 % (12.0-16.0); RED CELL COUNT 2.85 10/6/uL (4.7-6.1)
[2016-08-05 06:55] LABS: HEMATOCRIT 23.6 % (40.0-51.0); MANUAL DIFF YES %; WHITE BLOOD CELLS 18.4 10/3/uL (4.5-10.5)
[2016-08-05 07:20] LABS: BAND NEUTROPHILS 15 %; IMMATURE GRANS ABSOLUTE (CALC) 6.99 10/3/uL (0.0-0.11); LYMPHOCYTES 10 %; LYMPHOCYTES ABSOLUTE (CALC) 1.84 10/3/uL (0.67-4.30); METAMYELOCYTES 22 %; MONOCYTES 4 %; MONOCYTES ABSOLUTE (CALC) 0.74 10/3/uL (0.21-1.20); MYELOCYTES 15 %; NEUTROPHILS ABSOLUTE (CALC) 8.83 10/3/uL (2.02-8.40); PROMYELOCYTES 1 % (0); SEGMENTED NEUTROPHIL (0) 33 %; TOTAL NUCLEATED CELLS 100
[2016-08-05 07:21] LABS: PLATELET ESTIMATE ADQ (ADEQUATE); TOXIC GRANULATION 1+
[2016-08-05 07:22] LABS: POLYCHROMASIA 1+ (2-5/OIF) (0-1/OIF)
[2016-08-06 05:59] LABS: CALCIUM, SERUM 8.6 MG/DL (8.5-10.4); CHLORIDE, SERUM 98 MMOL/L (96-112); CO2 (CARBON DIOXIDE) 28 MMOL/L (24-34); GFR AFRICAN AMERICAN 92 ML/MIN (>=60); GFR NON AFRICAN AMERICAN 80 ML/MIN (>=60); GLUCOSE, SERUM 115 MG/DL (60-99); POTASSIUM, SERUM 4.6 MMOL/L (3.5-5.3); SODIUM, SERUM 136 MMOL/L (135-148)
[2016-08-06 06:05] LABS: BUN (BLOOD UREA NITROGEN) 22 MG/DL (6-23); HEMATOCRIT 21.6 % (40.0-51.0); HEMOGLOBIN 7.6 g/dL (13.6-17.8); MEAN CORPUS HGB CONC 35.2 g/dL (32.0-36.0); MEAN CORPUSCULAR HEMOGLOB 29.9 pg (26.0-34.0); MEAN PLATELET VOLUME 9.4 fL (9.2-13.0); PLATELET COUNT 300 10/3/uL (150-400); RBC DISTRIBUTION WIDTH 14.7 % (12.0-16.0); RED CELL COUNT 2.54 10/6/uL (4.7-6.1); WHITE BLOOD CELLS 18.9 10/3/uL (4.5-10.5)
[2016-08-06 06:08] LABS: MANUAL DIFF YES %
[2016-08-06 07:36] LABS: BAND NEUTROPHILS 23 %; LYMPHOCYTES 4 %; LYMPHOCYTES ABSOLUTE (CALC) 0.76 10/3/uL (0.67-4.30); METAMYELOCYTES 16 %; MONOCYTES 7 %; MONOCYTES ABSOLUTE (CALC) 1.32 10/3/uL (0.21-1.20); MYELOCYTES 9 %; NEUTROPHILS ABSOLUTE (CALC) 11.72 10/3/uL (2.02-8.40); PLATELET ESTIMATE ADQ (ADEQUATE); POLYCHROMASIA 1+ (2-5/OIF) (0-1/OIF); PROMYELOCYTES 2 % (0); SEGMENTED NEUTROPHIL (0) 39 %; TOTAL NUCLEATED CELLS 100; TOXIC GRANULATION 2+
[2016-08-06] MEDS ORDERED: ELIQUIS 5 MG TAB5 MG PO (14:48)
[2016-08-06] MEDS ORDERED: LEVAQUIN750 MG PO (14:49)
[2016-08-06] MEDS ORDERED: DEX4 PO (14:51)
[2017-01-25] MEDS ORDERED: PR25 PO (10:44)
[2017-01-25] MEDS ORDERED: NORCO1 TAB PO (10:46)
== END 2016-08-06 15:21 | disposition home or self-care (01) | DRG 871 ==
LOC: 4EA 23:15
PROVIDERS: Hospitalist; Internal Medicine; Internal Medicine Hematology & Oncology
DX: A41.9 Sepsis, unspecified organism (principal); I26.99 Other pulmonary embolism without acute cor pulmonale; J18.9 Pneumonia, unspecified organism; D70.9 Neutropenia, unspecified; R50.81 Fever presenting with conditions classified elsewhere; C62.90 Malignant neoplasm of unspecified testis, unspecified whether descended or undescended
CPT/HCPCS: 36415; 71010; 71250; 74000; 80048; 80053; 81001; 83605; 83735; 84100; 84145; 84439; 84443; 85014; 85018; 85025; 86850; 86900; 86901; 87040; 87070; 87205; 87449; 87804; 93005; 94010; 94640; 94729; A9270-GY; J0692; J1170; J1885; J2405; J3370

== ENCOUNTER 2016-08-12 10:27 | Inpatient (IN) | payer BC ==
--- NOTE | ~2016-08-12 | OP ---
Record Of Operation [facility] [address] [place]. [address] NAME: RADHA HENDERSON II : 81 STATUS : ADM IN PAT#: [id number] AGE: 30 ADM/REG DATE : 08/12/16 MR#: [id number] REPORT SERV DATE: 08/17/16 DICTATED BY: RADHA HURD JR. DATE: 08/17/16 REPORT STATUS : Draft TRANSCRIBED BY: MODEsthela DATE: 08/17/16 DATE OF PROCEDURE: 08/17/2016 PREOPERATIVE DIAGNOSES: Left parapneumonic effusion versus empyema, pneumonia, history of metastatic testicular cancer with pulmonary metastasis, history of previous pulmonary embolism. POSTOPERATIVE DIAGNOSES: Left parapneumonic effusion versus empyema, pneumonia, history of metastatic testicular cancer with pulmonary metastasis, history of previous pulmonary embolism. NAME OF OPERATION: Bronchoscopy, left thoracoscopy with complete decortication, intercostal nerve block. SURGEON: Dr. Radha Hurd. RESIDENT SURGEON: Dr. Clay Allen. BOARD LAYER: Tr Garcia. ANESTHESIA: General endotracheal. FINDINGS: The patient was noted to have a clear parapneumonic effusion with loculations and gelatinous material. There was a peel developing on both the left upper and lower lobes. We were able get the lung completely decorticated and with good re-expansion. Fluid from the chest was sent for cultures and cytology. On bronchoscopy, there was no endobronchial lesions or contraindication to resection. Mucous secretions were evacuated. DETAILS OF OPERATION: After adequate general anesthesia, the patient was intubated with a single-lumen endotracheal tube. Bronchoscopy was performed noting no endobronchial lesions. Mucosal secretions were evacuated. He was then positioned in the right lateral decubitus position. The left chest was prepped and draped in routine sterile fashion. A small incision made overlying the lower intercostal space. Through this single incision site, the above findings were noted. There was clearly a parapneumonic effusion as opposed to blood, which was initially thought. There was a lot of inflammation, loculations, and gelatinous material in the chest cavity. There was a peel forming on the lung tissue. The loculations of fluid were broken up and evacuated and sent for cultures and cytology. The peel was removed from the pleural surface including several air leaks in the process. We were able to get a good decortication of the lung tissue and the fissure was opened up. The chest was then thoroughly irrigated with multiple liters of normal saline solution. Intercostal nerve block was performed. Two straight 32-Chilean chest tubes were placed. The lung was reinflated. Trocar site was closed with running Vicryl sutures. The skin was closed with running monofilament suture. A Dermabond dressing was applied. The procedure was terminated this point. The patient tolerated the procedure well and taken back to recovery room in stable condition. Record Of Operation [address] [address] NAME: RADHA HENDERSON II : 83 STATUS : ADM IN PAT#: [id number] AGE: 30 ADM/REG DATE : 08/12/16 MR#: [id number] REPORT SERV DATE: 08/17/16 DICTATED BY: RADHA HURD JR. DATE: 08/17/16 REPORT STATUS : Draft TRANSCRIBED BY: YVROSE DATE: 08/17/16 JOSE MARIA/YVROSE Radha Hurd Jr., M.D. / [id number] CC: MD Clark Pearl
--- NOTE | ~2016-08-12 | CN ---
Consultation Report [facility] [address] [place]. [address] NAME: RADHA HENDERSON II : 81 STATUS : ADM IN PAT#: [id number] AGE: 30 ADM/REG DATE : 08/12/16 MR#: [id number] REPORT SERV DATE: 08/16/16 DICTATED BY: RADHA HURD JR. DATE: 08/16/16 REPORT STATUS : Draft TRANSCRIBED BY: MODL DATE: 08/16/16 CONSULTATION HISTORY AND PHYSICAL DATE OF CONSULTATION: 08/16/2016 REASON FOR CONSULTATION: Left pleural effusion. 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 He has a history of right orchiectomy and retroperitoneal dissection in 2016 and was recently receiving chemotherapy for his recurrent disease when he had a syncopal episode. Ultimately, he was admitted to the hospital and had a right-sided pulmonary embolism and then subsequently had pneumonia. He was tolerating Lovenox therapy well, had a CT of the chest initially in the hospital, which showed a small left pleural effusion and had attempted thoracentesis that was unsuccessful. Followup CT showed large left pleural effusion with atelectasis. We are asked to see him for possible VATS pleurodesis. MEDICAL HISTORY: Consists of the above-mentioned testicular cancer with pulmonary metastasis as well as history of pulmonary embolism and pneumonia. PAST SURGICAL HISTORY: Significant for orchiectomy in 2016 right-sided, colonoscopy, retroperitoneal lymph node dissection, as well as has had wisdom teeth extracted. SOCIAL HISTORY: The patient is . He is a lifetime nonsmoker and occasionally drinks socially. He is a retail product advisor. FAMILY HISTORY: Significant for a grandmother with history of CVA, grandfather with history of coronary artery disease and a grandmother with diabetes mellitus. His father from complications of a substance abuse problem. ALLERGIES: NO KNOWN DRUG ALLERGIES. HOME MEDICATIONS: Include Tessalon Perles 200 mg p.o. three times daily as needed, bleomycin injection one dose come every seven days, Decadron 4 mg 1 mg taper as directed, Marinol 2.5 mg p.o. three times daily, Lovenox 90 mg subcu twice daily, etoposide phosphate injection per Oncology, Dilaudid 2 mg p.o. every six hours as needed, Ativan 1 mg every eight hours as needed, Zofran 8 mg sublingual every eight hours as needed, Protonix 40 mg p.o. daily, Compazine 10 mg every four hours as needed, cisplatin per Oncology, and Hycodan 5 mg p.o. twice daily as needed. REVIEW OF SYSTEMS: Significant for shortness of breath and pleuritic type of chest pain. A complete 12-point review of systems is performed. All other systems are negative except for the abovementioned pertinent positives in the history of present illness. Consultation Report [facility] [address] [place]. [address] NAME: RADHA HENDERSON II : 81 STATUS : ADM IN [facility]#: [id number] AGE: 30 ADM/REG DATE : 08/12/16 MR#: [id number] REPORT SERV DATE: 08/16/16 DICTATED BY: RADHA HURD JR. DATE: 08/16/16 REPORT STATUS : Draft TRANSCRIBED BY: YVROSE DATE: 08/16/16 PHYSICAL EXAMINATION: GENERAL: This is a 30-year-old male, who is alert and oriented, in no acute distress. HEENT: Normocephalic, atraumatic. Pupils equal, round, react to light. Ears, nose, throat, no lesions or exudate. NECK: Supple. No lymphadenopathy, JVD, or bruits. Trachea midline. No obvious goiter. CHEST: Symmetrical with no obvious chest wall deformities. CARDIOVASCULAR: Regular rate and rhythm. S1, S2. No murmurs or gallops. RESPIRATORY: Decreased breath sounds on the left. Clear on right. ABDOMEN: Soft, nontender, and nondistended. Positive bowel sounds in all four quadrants. No hepatosplenomegaly. : The patient voids without difficulty. Further examination is deferred. MUSCULOSKELETAL: No obvious kyphosis or scoliosis. SKIN: Warm and dry with normal turgor. No obvious breakdown or lesions noted. PSYCHIATRIC: Normal affect. He is pleasant. LABORATORY DATA: Laboratories dated 02/15/2017, sodium 133, potassium 3.4, BUN 11, creatinine 0.81, glucose 88, calcium 8.2, magnesium 1.9. White blood cell count 1.9, hemoglobin 6.9, hematocrit 19.2, platelet count 160. CT of the chest dated 08/16/2016 showing significant increase in left pleural effusion, near complete atelectasis and consolidation of the left lung, stable right middle lobe. Known metastatic lesion 7 x 12 mm. There is also some ground-glass opacity and nodularity in the lateral right lung apex measuring up to 6 x 8 mm. A new small right pleural effusion. Left lower lobe atelectasis. Stable midline ventral hernia in the upper abdomen containing loop of transverse colon without bowel compromise. Very atrophic right kidney and there is some hyperdense material in the gallbladder. Thoracentesis dated 08/15/2016, unsuccessful attempt yielding minimal fluid. PROBLEM LIST: 1. Left pleural effusion. 2. History of pneumonia. 3. History of pulmonary embolism. 4. Testicular cancer with pulmonary metastasis. 5. Right atrophic kidney. IMPRESSION AND PLAN: This is a 30-year-old white male with history of testicular cancer with known metastasis to the right lung. He has been undergoing chemotherapy, at which point in time, he had a PE and subsequent pneumonia resulting in respiratory failure and hospitalization. He had attempted thoracentesis yesterday that did not yield fluid. Given his hemoglobin and hematocrit, this could possibly be hemothorax. We will go ahead and plan for a left thoracoscopy with pleural biopsies and pleurodesis. We discussed the risks, benefits, and expected outcomes of the planned operation with the patient. He verbalized understanding of what all we discussed. We will go ahead and make arrangements for this to occur tomorrow morning. Consultation Report [address] [address] NAME: RADHA HENDERSON LUZ : 81 STATUS : ADM IN [facility]#: [id number] AGE: 30 ADM/REG DATE : 08/12/16 MR#: [id number] REPORT SERV DATE: 08/16/16 DICTATED BY: RADHA HURD JR. DATE: 08/16/16 REPORT STATUS : Draft TRANSCRIBED BY: YVROSE DATE: 08/16/16 All questions are answered. DICTATED BY: Lo Cruz NP AM/YVROSE Radha Hurd Jr., M.D. / [id number] CC: MD KIT Pearl
--- NOTE | ~2016-08-12 | CN ---
Consultation Report [facility] [address] [place]. [address] NAME: RADHA HENDERSON II : 81 STATUS : ADM IN PAT#: [id number] AGE: 30 ADM/REG DATE : 08/12/16 MR#: [id number] REPORT SERV DATE: 08/19/16 DICTATED BY: PEÑA GRIGSBY DATE: 08/19/16 REPORT STATUS : Draft TRANSCRIBED BY: MODL DATE: 08/19/16 INFECTIOUS DISEASE CONSULTATION DATE OF CONSULTATION: 08/19/2016 REASON FOR CONSULTATION: Antibiotic recommendations. HISTORY OF PRESENT ILLNESS: This is a 30-year-old man who was found to have a germ-cell tumor last year and underwent a right orchiectomy in 11/2015. Apparently, a followup chest x-ray earlier this year showed a new right lung nodule, which was biopsied on 06/13/2016 and confirmed as metastatic germ-cell tumor. The patient was started on chemotherapy with bleomycin, etoposide, and cisplatinum. The patient was in the hospital from 07/27/2016 through 07/31/2016 with acute pulmonary embolism with pleuritic chest pain. He also was neutropenic during that admission from the chemotherapy. He returned to the hospital the day after discharge on 08/01/2016 and was found to have evidence of a left lower lobe pneumonia on CT scan with a sputum culture growing abundant Moraxella. He was discharged on 08/06/2016 on oral Levaquin and completed a total of seven days of antibiotics. He was resolving his leukopenia that admission. After going home, he initially was doing reasonably well. He received his next round of chemotherapy on 08/08/2016. On the morning of 08/12/2016, he awoke with left-sided chest pain, which became progressively more severe, and by the time he got to the physician's office, his says he "passed out." He was admitted. There were no fevers or chills last week. He did have a bit of a cough still. Initial evaluation included CT angiography of the chest, which demonstrated no pulmonary emboli and a small left pleural effusion with compressive atelectasis and left lower lobe infiltrate. On my review of this scan, the infiltrate was no worse than the CT scan on 08/04/2016. The patient was placed on antibiotic therapy on admission with vancomycin and cefepime. On followup chest x-rays, he developed a steadily enlarging left pleural effusion with near-complete opacification of the left hemithorax. This led to attempted thoracentesis on 08/15/2016, which yielded just 45 mL of blood and was complicated by vasovagal reaction after the procedure. This material was sent for analysis and showed 511,000 red blood cells, 42,690 white blood cells with 80% neutrophils, an LDH of 11,514, glucose of 50, and total protein of 4.2. The patient's peripheral white blood cell count on that day was 5.5 thousand but has dropped since then down to 1.1 thousand today. The patient was evaluated by Dr. Hurd of CT Surgery and was taken to the operating room on 08/17/2016, undergoing bronchoscopy, left thoracoscopy with complete decortication, and intercostal nerve block. The patient was noted to have a parapneumonic effusion with loculations and gelatinous material with a peel that was decorticated. Cultures from the operative procedure are negative to date. Cultures from the thoracentesis grew very sparse MRSA. Gram stains were negative. The patient remains afebrile. He says he feels better today. He still has some chest pain and an occasional cough. He denies any nausea today and has had a bowel movement. PAST MEDICAL HISTORY: In addition to the above is notable for solitary kidney, wisdom tooth extraction. He had to have a nephrectomy apparently due to a complication of lymph node Consultation Report [address] [place]. [address] NAME: RADHA HENDERSON II : 81 STATUS : ADM IN [facility]#: [id number] AGE: 30 ADM/REG DATE : 08/12/16 MR#: [id number] REPORT SERV DATE: 08/19/16 DICTATED BY: PEÑA GRIGSBY DATE: 08/19/16 REPORT STATUS : Draft TRANSCRIBED BY: MODL DATE: 08/19/16 dissection on the right renal artery. ALLERGIES: NO KNOWN DRUG ALLERGIES. PRESENT MEDICATIONS: In addition to vancomycin and cefepime include vitamin C, Dulcolax, Marinol, Lovenox, Dilaudid, Movantik, Protonix, MiraLAX, and zinc. SOCIAL HISTORY: He lives with his who is here in the room with him. He has 3 children. Nonsmoker. Nondrinker. 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 FAMILY HISTORY: Notable for hypertension and melanoma in his father. REVIEW OF SYSTEMS: As outlined above. In addition, he does note some problems recently with some difficulty with peripheral IV access. He denies any significant headache. PHYSICAL EXAMINATION: VITAL SIGNS: The patient weighs 90 kg. He is afebrile this admission. Blood pressure 121/69, pulse 97, respiratory rate 16, and oxygen saturation 99% on 2 L. GENERAL: He is in no acute distress. HEAD AND NECK: He has a right IJ central line placed at surgery two days ago covered by dressing. The oral cavity shows no thrush. LUNGS: Diminished breath sounds in the left base. No crackles. No rub. CHEST: The surgical wound is healing nicely. CARDIAC: Regular rate and rhythm. Normal S1 and S2 without murmur, gallop, or rub. ABDOMEN: Bowel sounds are present. The abdomen is soft and nontender. SKIN: Shows no rash. EXTREMITIES: Reveal a peripheral IV in the left arm. No significant edema. LABORATORY STUDIES: White blood cell count today 1.1 with 59% neutrophils, 13% lymphocytes, hemoglobin 7.2, platelets 86,000. His platelets on admission were 506. Creatinine yesterday was 0.83. Pleural fluid studies as noted. Microbiology studies: Sputum culture from 08/13/2016 just grew yeast. Pleural fluid cultures and OR cultures as mentioned above. Cytology from the surgery shows acute inflammation and no malignancy. Serial chest x-rays and the CT scans were all reviewed. IMPRESSION: Probable left-sided empyema in a patient with metastatic germ-cell tumor, who has been on chemotherapy and has had periods of neutropenia, who also was in the hospital in late 07/2016 with a left lower lobe pneumonia with sputum culture at that time growing Moraxella. I do not really think when he came back in this admission that he had an ongoing significant active pneumonia but did develop this complicated and loculated parapneumonic effusion. The culture from the attempted thoracentesis is growing methicillin-resistant Staphylococcus aureus, but I am concerned this could just represent contamination, given that only 45 mL of blood was obtained on the aspiration, although certainly it may be the pathogen. Consultation Report [facility] [place] [address] [place]. [address] NAME: BEATRIZRADHA II : 81 STATUS : ADM IN PAT#: [id number] AGE: 30 ADM/REG DATE : 08/12/16 MR#: [id number] REPORT SERV DATE: 08/19/16 DICTATED BY: PEÑA GRIGSBY DATE: 08/19/16 REPORT STATUS : Draft TRANSCRIBED BY: YVROSE DATE: 08/19/16 PLAN: 1. I believe we need to continue to cover the previous Moraxella along with the MRSA. For now, we will continue IV therapy with vancomycin and cefepime. Once his neutrophil count more fully recovers, we may be able to transition to an oral regimen such as Zyvox and Levaquin or Levaquin plus a second agent or even Levaquin alone as the MRSA is sensitive to it. 2. Plan discontinuing the right IJ central line tomorrow. EMEKA/YVROSE Peña Grigsby M.D. / [id number] CC: MD Clark Pearl M.D. James Headrick Jr., M.D.
--- NOTE | ~2016-08-12 | DS ---
Discharge Summary [facility] [address] [place]. [address] NAME: RADHA HENDERSON II : 81 STATUS : DIS IN PAT#: [id number] AGE: 30 ADM/REG DATE : 08/12/16 MR#: [id number] REPORT SERV DATE: 08/30/16 DICTATED BY: SAVANNA ESCOBARRADHA DATE: 08/29/16 REPORT STATUS : Draft TRANSCRIBED BY: MODL DATE: 08/29/16 ADMISSION DATE: 08/12/2016 DISCHARGE DATE: 08/29/2016 DISCHARGE DIAGNOSES: 1. Left empyema, status post VATS. 2. Metastatic testicular cancer. 3. Pancytopenia due to chemo. 4. History of pulmonary embolism. CONSULTS: 1. Radha Hurd M.D., Cardiothoracic Surgery. 2. Drew Weiss M.D., Infectious Disease. 3. Hernandez Ramos M.D., [facility]. HOSPITAL COURSE: For details of patient's hospital course, please see my H and P from admission and Dr. Estrella's interim summary from 08/22. Regarding his left empyema, he did well after the VATS procedure on 08/17/2016. The cultures grew MRSA and Dr. Weiss has been following the patient, finishing out vanc and Rocephin over the weekend. Currently, Dr. Grigsby has recommended Septra for 5 more days. Overall, his white count has since rebounded after getting G-CSF and currently 5.8. Hemoglobin has been stable around 8 and platelets rebounded to 300. At this point, he is currently stable. No further chemotherapy planned at this point in time. Dr. Ramos will repeat a PET scan at some point in the future and follow up in clinic. DISCHARGE MEDICATIONS: 1. Marinol 2.5 mg p.o. t.i.d. 2. Lovenox 90 mg subcu b.i.d. 3. The patient will resume Eliquis once Lovenox finishes. 4. Dilaudid 2 mg p.o. q.6 hours p.r.n. pain. 5. Protonix 40 mg p.o. daily. 6. MiraLax p.o. daily. 7. Hycodan syrup daily. 8. Tessalon 200 mg p.o. t.i.d. p.r.n. cough. 9. Zofran 8 mg sublingual q.8 hours p.r.n. 10.Compazine 10 mg p.o. q.4 hours p.r.n. 11.Ativan 1 mg p.o. q.8 hours p.r.n. 12.Maalox p.r.n. 13.Percocet 1-2 tabs p.o. q.4-6 hours p.r.n. DISCHARGE INSTRUCTIONS: The patient will follow up with Dr. Hernandez Ramos in one to two weeks. MAK/YVROSE Discharge Summary [address] [address] NAME: RADHA HENDERSON LUZ : 81 STATUS : DIS IN PAT#: [id number] AGE: 30 ADM/REG DATE : 08/12/16 MR#: [id number] REPORT SERV DATE: 08/30/16 DICTATED BY: RADHA CORRALES II DATE: 08/29/16 REPORT STATUS : Draft TRANSCRIBED BY: YVROSE DATE: 08/29/16 Radha Corrales II, MD / [id number] CC: MD KIT Falk II
--- NOTE | ~2016-08-12 | CN ---
Consultation Report [facility] [address] [place]. [address] NAME: RADHA DE DIOS II : 81 STATUS : ADM IN PAT#: [id number] AGE: 30 ADM/REG DATE : 08/12/16 MR#: [id number] REPORT SERV DATE: 08/17/16 DICTATED BY: MAC CRUZ DATE: 08/16/16 REPORT STATUS : Draft TRANSCRIBED BY: MODL DATE: 08/16/16 CONSULTATION NOTE DATE OF CONSULTATION: 08/16/2016 CHIEF COMPLAINT: Shortness of breath and left-sided pleuritic pain in a patient with an enlarging left pleural effusion. HISTORY OF PRESENT ILLNESS: Mr. Radha De Dios is a very pleasant 30-year-old, white male with a past medical history significant for metastatic testicular cancer, pulmonary embolism, and recent pneumonia, who presented to [facility]'s Emergency Room with complaints of worsening shortness of breath and left-sided pleuritic pain. It should be noted that, Mr. De Dios has been hospitalized as recently as ten days ago, when he was treated for pneumonia, sepsis, and pulmonary embolism. The patient has obviously had a difficult course in the short interim. Mr. De Dios is not currently followed by a pharmaceutical laboratory technician. He has not usually require any supplemental oxygen. He is on no nebulized medications. He describes himself as a never smoker. The patient does confirm snoring. He denies other symptomatology consistent with obstructive sleep apnea. He describes his exercise tolerance prior to this recent illness is being excellent. Mr. De Dios was first diagnosed with testicular cancer in November of last year. He eventually underwent a right orchiectomy. The patient did receive a chest x-ray by his primary care physician at some point in May or June, which suggested a possible lesion in the lung. He did eventually undergo biopsy of this nodule, which confirmed pulmonary metastasis. He did receive chemotherapy for these findings. More recently, in late July, he did have an acute pulmonary embolism. Soon after that, he did develop a left lower lobe pneumonia, which was positive for Moraxella. He did complete antibiotic therapy and eventually transitioned to home. Approximately three days ago, he began to experience worse left-sided pleuritic pain as well as concomitant dyspnea. He did have an episode while in the Oncology Clinic, where he had a syncopal episode. This prompted his presentation to [facility]'s Emergency Room. Since that time, he has received aggressive antibiotics. He did have a chest x-ray, which showed an increasing left-sided pleural effusion. He was sent to Interventional Radiology for an ultrasound-guided thoracentesis, however no appreciable fluid was able to be aspirated. That being said, it was sent for studies and resulted, and appears to be a bloody tap and is exudative in nature. Because of the patient's persistent left-sided pleuritic pain and dyspnea, he has been referred to the Pulmonary Service for further assessment. Currently, the patient is on supplemental oxygen at 3 L with appropriate oxygen saturations. He is not producing a lot of purulent sputum. He does have left-sided pleuritic pain and dyspnea at rest. He has had pneumonia in the past. He has had known PE. Consultation Report [facility] [address] [place]. [address] NAME: RADHA DE DIOS II : 83 STATUS : ADM IN [facility]#: [id number] AGE: 30 ADM/REG DATE : 08/12/16 MR#: [id number] REPORT SERV DATE: 08/17/16 DICTATED BY: MAC CRUZ DATE: 08/16/16 REPORT STATUS : Draft TRANSCRIBED BY: YVROSE DATE: 08/16/16 The patient currently denies any murmurs, angina, or palpitations. He denies any paroxysmal nocturnal dyspnea or dependent edema. In regard to constitutional symptoms, he has had fever. He denies any nausea, vomiting, chest pain, or edema. PAST MEDICAL HISTORY: Metastatic testicular cancer, pneumonia, pulmonary embolism on anticoagulation, solitary kidney. PAST SURGICAL HISTORY: [place] tooth excision, right orchiectomy, lymph node dissection complicated by renal artery compromising nephrectomy. FAMILY HISTORY: The patient does confirm a family history of melanoma. He denies any family history of lung disease. SOCIAL HISTORY: The patient is . They have three children, who are in good health. 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 He denies any known exposures to dust, silica, or asbestos. TOBACCO/ALCOHOL: As previously mentioned, the patient describes himself as a never smoker. He denies any recent alcohol or illicit drug use. MEDICATIONS: 1. Bleomycin. 2. Etoposide. 3. Cisplatin. 4. Pantoprazole 40 mg. 5. Tessalon Perles 200 mg. 6. Zofran 8 mg. 7. Compazine 10 mg. 8. Lorazepam 1 mg. 9. Marinol 2.5 mg. 10.Enoxaparin 100 mg. 11.Dilaudid 2 mg. ALLERGIES: THE PATIENT HAS NO KNOWN DRUG ALLERGIES. REVIEW OF SYSTEMS: A complete review of systems was performed with pertinent positives and negatives contained within the body of the HPI. PHYSICAL EXAMINATION: VITAL SIGNS: Blood pressure is 117/63, heart rate is 112, T-max is 99.8, respiratory rate is 20, SpO2 is 96% on 2 L nasal cannula. Consultation Report [place] [id number] [place]. [address] NAME: RADHA DE DIOS II : 83 STATUS : ADM IN [facility]#: [id number] AGE: 30 ADM/REG DATE : 08/12/16 MR#: [id number] REPORT SERV DATE: 08/17/16 DICTATED BY: MAC CRUZ DATE: 08/16/16 REPORT STATUS : Draft TRANSCRIBED BY: YVROSE DATE: 08/16/16 GENERAL: The patient is a pleasant, well-nourished/well-developed male, who is not currently exhibiting any signs of acute distress. Skin: Skin with appropriate texture and turgor. No rashes, lesions, or ulcers. Nails are clear without cyanosis or clubbing. HEENT: Head: Skull is normocephalic/atraumatic. Facies symmetric. No masses or lesions. Eyes: Sclera anicteric, conjunctiva pink without exudates. Extra ocular movements intact. Pupils are equal, round, reactive to light. Ears: Auricles and tragus without pain to palpation. Hearing is grossly intact. Nose: Bilateral nasal patency. Sinuses without tenderness upon palpation. Throat: Dentition. Lips, oral mucosa, tongue, palate, and pharynx pink and moist without lesions. Uvula rises equally on phonation. Tongue midline without deviation. The patient is Mallampati class 3-4. NECK: Neck supple. Trachea midline. No cervical lymphadenopathy appreciated. THORAX/LUNGS: Thorax is symmetric with equal chest rise. No rales, wheezes, rhonchi. Very diminished breath sounds on the left thorax, inspiratory crackles in the posterior right base. CARDIOVASCULAR: Regular rate and rhythm. No murmurs, rubs, or gallops. Anterior chest without thrills, heaves, or lifts. ABDOMEN: Soft. Non-distended, non-tender. Active bowel sounds in all four quadrants. No hepatosplenomegaly noted. PERIPHERAL VASCULAR: No edema. No varicosities, stasis changes, open sores, ulcerations, or phlebitis. 2+ pulses in radial and dorsalis pedis. MUSCULOSKELETAL: Full AROM and PROM in all joints. No evidence of erythema, deformity, or crepitus. NEUROLOGIC: CN II - XII grossly intact. Good muscle bulk and tone bilaterally. Strength 5/5 throughout. PSYCHIATRIC: Patient demonstrates good judgment and insight. Pt is A&O x 3. ACCESSORY DATA: Reveals a white blood cell count of 1900, hemoglobin and hematocrit are 6.9 and 19.2. Chest x-ray reveals a large pleural effusion that has increased significantly in size causing near complete opacification of the left thorax. IMPRESSION: 1. Acute hypoxemic respiratory failure. 2. Enlarging left pleural effusion. 3. Recent healthcare-associated pneumonia with neutropenia. 4. Pulmonary embolism, currently on anticoagulation. 5. Metastatic testicular cancer. 6. Anemia. PLAN: 1. The patient is currently on supplemental oxygen. We will wean this as tolerated. 2. In regard to the patient's enlarging left pleural effusion, we will recheck a CT of the chest. We discussed the possible repeat thoracentesis versus chest tube placement with possible lytic therapy. We also discussed more definitive therapy, which includes Consultation Report [address] [address] NAME: RADHA DE DIOS II : 83 STATUS : ADM IN [facility]#: [id number] AGE: 30 ADM/REG DATE : 08/12/16 MR#: [id number] REPORT SERV DATE: 08/17/16 DICTATED BY: MAC CRUZ DATE: 08/16/16 REPORT STATUS : Draft TRANSCRIBED BY: YVROSE DATE: 08/16/16 video-assisted thorascopic surgery. At this time, we will order a CT of the chest to better evaluate this enlarging effusion. We will likely contact our colleagues in Cardiothoracic Surgery for consideration of VATS. 3. In regard to the patient's neutropenia and recent pneumonia, he has been placed on aggressive antibiotic regimen. We will follow further recommendations. 4. In regard to the patient's PE, he is currently on Lovenox. We will need to stop this, should he elect to pursue surgery. The aforementioned impression and plan has been discussed with Dr. Gaspar, who will follow further recommendations. We thank you for this consult and look forward to participating in the care of Mr. Radha De Dios. GBS/MODL Mac Cruz PA-C / [id number] CC: MD Clark Pearl MD
--- NOTE | ~2016-08-12 | IDS ---
Interim Discharge Summary [facility] [address] [place]. [address] NAME: RADHA HENDERSON II : 81 STATUS : ADM IN PAT#: [id number] AGE: 30 ADM/REG DATE : 08/12/16 MR#: [id number] REPORT SERV DATE: 08/22/16 DICTATED BY: MARTIN ESTRELLA DATE: 08/22/16 REPORT STATUS : Draft TRANSCRIBED BY: MODL DATE: 08/22/16 ADMISSION DATE: 08/12/2016 DISCHARGE DATE: Interim summary covers up to date 08/22/2016. CHIEF COMPLAINT ON ADMISSION: Severe left-sided chest pain and syncopal episode. CURRENT HOSPITAL DIAGNOSES: 1. Left empyema, status post VATS procedure. 2. Metastatic testicular cancer. 3. Pancytopenia due to chemo. 4. History of pulmonary embolism. 5. Pain. HISTORY OF PRESENT ILLNESS: Please see full H and P by Dr. Pedro for details regarding initial presentation. HOSPITAL COURSE: 1. Left empyema, status post VATS procedure. Dr. Hurd performed VATS procedure on 08/17/2016. The patient has recovered well. Chest tube is out. He is currently on vanc and cefepime. He did have some pleural fluid from a small volume thoracentesis, which is growing MRSA. Antibiotics are per ID at this point, continuing vanc and cefepime until ANC improves. 2. Metastatic testicular cancer and pancytopenia due to chemotherapy. Oncology is following. He has required intermittent transfusions following pancytopenia. 3. History of pulmonary embolism. The patient continues on Lovenox. 4. Left-sided chest pain. Currently, the patient is reasonably controlled on his current regimen. DISPOSITION: Disposition will be home when ANC improves and Infectious Disease makes appropriate antibiotics recommendations for discharge. DNK/YVROSE Martin Estrella MD / [id number] CC: Martin Estrella MD
--- NOTE | ~2016-08-12 | HP ---
History And Physical [place] [id number] [place]. [address] NAME: RADHA HENDERSON II : 83 STATUS : ADM [facility] PAT#: [id number] AGE: 30 ADM/REG DATE : 08/12/16 MR#: [id number] REPORT SERV DATE: 08/12/16 DICTATED BY: SAVANNA ESCOBARRADHA DATE: 08/12/16 REPORT STATUS : Draft TRANSCRIBED BY: MODL DATE: 08/12/16 DATE OF ADMISSION: 08/12/2016 CHIEF COMPLAINT: Severe left-sided chest pain and syncopal episode. HISTORY OF PRESENT ILLNESS: The patient is a 30-year-old male with a history of metastatic testicular cancer followed by Dr. Hernandez Ramos as well as pulmonary embolism, on Lovenox and recent admission for pneumonia, who presented to [facility] today after new-onset left-sided pleuritic chest pain. The patient states that his chest pain started about 0300 hours this morning and then he was going to the Oncology office for his scheduled chemotherapy appointment when he experienced a syncopal episode while coming into the clinic. The patient noted his vision became darkened and he reports coming to with a crowd of nurses surrounding him. He says his dizziness was gradual and not associated with any palpitations. He notes his left-sided pleuritic chest pain has gradually gotten worse associated with inspiration. He was subsequently transferred to [facility] ER for evaluation. He was hypotensive in the clinic and in the emergency room and has been bolused 2 L of IV fluid in the ER. His white count was 13 on admission. A CTA done in the ER showed no evidence of recurrent pulmonary embolism but consolidation in the left lower lobe with associated pleural effusion and compressive atelectasis. The patient was recently admitted 08/01/2016, for neutropenic fever, found to have left lower lobe pneumonia with cultures growing Moraxella. He completed a seven-day course with Levaquin that finished on 08/10/2016, otherwise currently the patient notes severe pleuritic chest pain, but denies any nausea, vomiting, or diarrhea. He states he may be little dehydrated but has otherwise been eating and drinking okay. He denies any diarrhea, melena, or hematochezia. He has some shortness of breath, mostly limited due to shallow inspiration. REVIEW OF SYSTEMS: 10-point review of systems otherwise negative except for HPI. PAST MEDICAL HISTORY: 1. Metastatic testicular cancer, followed by Dr. Hernandez Ramos, status post recent chemotherapy. 2. Bilateral pulmonary emboli, currently on Lovenox. 3. History of solitary kidney. PAST SURGICAL HISTORY: 1. Right inguinal orchiectomy. 2. Lymph node dissection complicated by renal artery compromise and nephrectomy. ALLERGIES: NO KNOWN DRUG ALLERGIES. MEDICATIONS: Bleomycin, etoposide, cisplatin, Hycodan, Protonix, benzoate, Zofran, Compazine, Ativan, Marinol, Dulcolax, Lovenox, and Dilaudid. History And Physical [address] [address] NAME: RADHA HENDERSON II : 81 STATUS : ADM [facility] PAT#: [id number] AGE: 30 ADM/REG DATE : 08/12/16 MR#: [id number] REPORT SERV DATE: 08/12/16 DICTATED BY: RADHA CORRALES II DATE: 08/12/16 REPORT STATUS : Draft TRANSCRIBED BY: YVROSE DATE: 08/12/16 SOCIAL HISTORY: Denies any alcohol, tobacco, or drug use. Currently, he lives at home with his and works as a retail asset protection specialist. FAMILY HISTORY: Significant for mother who is healthy. Father with history of hypertension and melanoma. PHYSICAL EXAMINATION: VITAL SIGNS: Blood pressure 95/42, temperature 98.7, pulse 120, respirations 22, and O2 saturation 96% on room air. GENERAL: The patient is alert and oriented x3, in mild distress. NECK: Supple. Nontender. No lymphadenopathy or thyromegaly. HEENT: Dry mucous membranes. Pupils are equal, round, and reactive to light. Conjunctivae clear. RESPIRATORY: Diminished in the left lower lobe with mild crackles. No rhonchi or wheezing. The patient is tachypneic with labored breathing, shallow inspiration. CARDIOVASCULAR: Tachycardia with regular rhythm. No murmurs, rubs, or gallops. ABDOMEN: Soft, nontender, and nondistended. Normoactive bowel sounds. EXTREMITIES: No cyanosis, clubbing, or edema. SKIN: No lesions, rashes, or wounds. NEUROLOGIC: No focal deficits. LABORATORY DATA: Sodium 135, potassium 4.5, chloride 99, CO2 of 24, BUN 25, creatinine 1.3, glucose 125, calcium 8.4, troponin less than 0.02. WBC 13.2, hemoglobin 9.5, platelets 506. INR 1.2. RADIOGRAPHIC DATA: CTA chest with residual 1.5 cm metastasis in the lateral aspect of the right middle lobe, adherent to the pleural surface. Otherwise, a small left pleural effusion with compressive atelectasis and consolidation in the left lung base. ASSESSMENT AND PLAN: The patient is a 30-year-old male with: 1. Healthcare-associated pneumonia with severe left pleuritic chest pain and small effusion, likely parapneumonic. 2. Severe sepsis. 3. Hypotension. Improved with IV fluids. 4. Mild acute kidney injury. 5. Syncopal episode, likely secondary to above. 6. History recent pulmonary embolism and deep venous thrombosis, on Lovenox. 7. Metastatic testicular cancer. 8. Recent pneumonia with Moraxella. PLAN: The patient was given cefepime in the ER, and we will add vancomycin given his recent admission. The patient is also considered immunocompromised due to chemotherapy. Will culture sputum if available. Otherwise blood cultures have been sent. Continue IV fluids, pain control, and Lovenox. The patient is full code. History And Physical [address] [address] NAME: RADHA HENDERSON II : 83 STATUS : ADM [facility] PAT#: [id number] AGE: 30 ADM/REG DATE : 08/12/16 MR#: [id number] REPORT SERV DATE: 08/12/16 DICTATED BY: RADHA CORRALES II DATE: 08/12/16 REPORT STATUS : Draft TRANSCRIBED BY: YVROSE DATE: 08/12/16 MAK/YVROSE Radha Corrales II, MD / [id number] CC: Radha Corrales II, MD
[2016-08-12 10:02] LABS: BASOPHILS 0 %; EOSINOPHILS 0 %; IMMATURE GRANULOCYTES 0.6 %; IMMATURE GRANULOCYTES ABSOLUTE 0.08 10/3/uL (0.0-0.11); LYMPHOCYTES 4.9 %; LYMPHOCYTES ABSOLUTE 0.65 10/3/uL (0.67-4.30); MEAN CORPUS HGB CONC 34.4 g/dL (32.0-36.0); MEAN CORPUSCULAR HEMOGLOB 29.6 pg (26.0-34.0); MEAN PLATELET VOLUME 8.4 fL (9.2-13.0); MONOCYTES 0.5 %; MONOCYTES ABSOLUTE 0.06 10/3/uL (0.21-1.20); RBC DISTRIBUTION WIDTH 15.2 % (12.0-16.0); WHITE BLOOD CELLS 13.2 10/3/uL (4.5-10.5)
[2016-08-12 10:10] LABS: HEMATOCRIT 27.6 % (40.0-51.0); HEMOGLOBIN 9.5 g/dL (13.6-17.8); INTERNATIONAL NORMAL RATI 1.2 UNITS (-); MANUAL DIFF NO %; PARTIAL THROMBO TIME 26.4 SEC (22.5-37.2); PLATELET COUNT 506 10/3/uL (150-400); PROTIME (NOT ORD) 14.7 SEC (12.0-14.5); RED CELL COUNT 3.21 10/6/uL (4.7-6.1)
[2016-08-12 10:18] LABS: BUN (BLOOD UREA NITROGEN) 25 MG/DL (6-23); CALCIUM, SERUM 8.4 MG/DL (8.5-10.4); CHEST PAIN PROFILE TAT 0 Hrs 22 Mins; CHLORIDE, SERUM 99 MMOL/L (96-112); CO2 (CARBON DIOXIDE) 24 MMOL/L (24-34); CREATININE 1.33 MG/DL (0.70-1.30); GFR AFRICAN AMERICAN 81 ML/MIN (>=60); GFR NON AFRICAN AMERICAN 70 ML/MIN (>=60); GLUCOSE, SERUM 125 MG/DL (60-99); POTASSIUM, SERUM 4.5 MMOL/L (3.5-5.3); SODIUM, SERUM 135 MMOL/L (135-148); TROPONIN I <0.02 NG/ML (<0.05)
[~2016-08-12 10:27] MED LIST changes: +DEX4 PO; +DIL2TAB PO; +LEVAQUIN750 MG PO
[2016-08-12] MEDS ORDERED: MAALOX PO (12:16)
[2016-08-13 05:59] LABS: BASOPHILS 0 %; EOSINOPHILS 0 %; HEMATOCRIT 23.8 % (40.0-51.0); HEMOGLOBIN 8.3 g/dL (13.6-17.8); IMMATURE GRANULOCYTES 0.4 %; IMMATURE GRANULOCYTES ABSOLUTE 0.04 10/3/uL (0.0-0.11); LYMPHOCYTES 3.8 %; LYMPHOCYTES ABSOLUTE 0.34 10/3/uL (0.67-4.30); MANUAL DIFF NO %; MEAN CORPUS HGB CONC 34.9 g/dL (32.0-36.0); MEAN CORPUSCULAR VOLUME 85.9 fL (80-100); MEAN PLATELET VOLUME 8.8 fL (9.2-13.0); MONOCYTES 0.7 %; MONOCYTES ABSOLUTE 0.06 10/3/uL (0.21-1.20); NEUTROPHILS 95.1 %; NEUTROPHILS ABSOLUTE 8.62 10/3/uL (2.02-8.40); PLATELET COUNT 375 10/3/uL (150-400); RBC DISTRIBUTION WIDTH 15.6 % (12.0-16.0); RED CELL COUNT 2.77 10/6/uL (4.7-6.1); WHITE BLOOD CELLS 9.1 10/3/uL (4.5-10.5)
[2016-08-13 06:18] LABS: ALBUMIN 2.6 G/DL (3.5-5.0); BUN (BLOOD UREA NITROGEN) 22 MG/DL (6-23); CALCIUM, SERUM 8.6 MG/DL (8.5-10.4); CHLORIDE, SERUM 103 MMOL/L (96-112); CREATININE 0.98 MG/DL (0.70-1.30); GFR AFRICAN AMERICAN 118 ML/MIN (>=60); GFR NON AFRICAN AMERICAN 102 ML/MIN (>=60); POTASSIUM, SERUM 4.8 MMOL/L (3.5-5.3); SGOT(AST) 7 U/L (5-40); SGPT(ALT) 24 U/L (5-65); SODIUM, SERUM 133 MMOL/L (135-148)
[2016-08-13 06:22] LABS: A/G RATIO 0.8 (0.7-1.9); ALKALINE PHOSPHATASE 37 U/L (45-117); CO2 (CARBON DIOXIDE) 19 MMOL/L (24-34); GLOBULIN 3.2 G/DL (2.5-4.1); GLUCOSE, SERUM 96 MG/DL (60-99); TOTAL BILIRUBIN 0.3 MG/DL (0-1.2); TOTAL PROTEIN 5.8 G/DL (6.0-8.5)
[2016-08-14 03:51] LABS: BASOPHILS 0 %; EOSINOPHILS 0 %; HEMOGLOBIN 7.3 g/dL (13.6-17.8); IMMATURE GRANULOCYTES 0.9 %; IMMATURE GRANULOCYTES ABSOLUTE 0.09 10/3/uL (0.0-0.11); LYMPHOCYTES 3.1 %; MEAN CORPUS HGB CONC 35.8 g/dL (32.0-36.0); MEAN CORPUSCULAR HEMOGLOB 30.2 pg (26.0-34.0); MEAN CORPUSCULAR VOLUME 84.3 fL (80-100); MEAN PLATELET VOLUME 8.1 fL (9.2-13.0); MONOCYTES 0.8 %; MONOCYTES ABSOLUTE 0.08 10/3/uL (0.21-1.20); NEUTROPHILS 95.2 %; PLATELET COUNT 313 10/3/uL (150-400); RBC DISTRIBUTION WIDTH 15.6 % (12.0-16.0); RED CELL COUNT 2.42 10/6/uL (4.7-6.1); WHITE BLOOD CELLS 9.7 10/3/uL (4.5-10.5)
[2016-08-14 03:53] LABS: HEMATOCRIT 20.4 % (40.0-51.0)
[2016-08-14 03:54] LABS: MANUAL DIFF NO %
[2016-08-14 04:05] LABS: CALCIUM, SERUM 8.3 MG/DL (8.5-10.4); CHLORIDE, SERUM 100 MMOL/L (96-112); CREATININE 0.89 MG/DL (0.70-1.30); GFR AFRICAN AMERICAN 131 ML/MIN (>=60); GFR NON AFRICAN AMERICAN 113 ML/MIN (>=60); GLUCOSE, SERUM 102 MG/DL (60-99); POTASSIUM, SERUM 4.2 MMOL/L (3.5-5.3); SODIUM, SERUM 132 MMOL/L (135-148); VANCOMYCIN TROUGH 11.4 MCG/ML (10.0-20.0)
[2016-08-14 04:06] LABS: BUN (BLOOD UREA NITROGEN) 17 MG/DL (6-23); CO2 (CARBON DIOXIDE) 25 MMOL/L (24-34)
[2016-08-15 05:28] LABS: BASOPHILS 0 %; EOSINOPHILS 0 %; IMMATURE GRANULOCYTES 1.6 %; IMMATURE GRANULOCYTES ABSOLUTE 0.09 10/3/uL (0.0-0.11); LYMPHOCYTES 3.4 %; LYMPHOCYTES ABSOLUTE 0.19 10/3/uL (0.67-4.30); MEAN CORPUSCULAR HEMOGLOB 30.2 pg (26.0-34.0); MEAN CORPUSCULAR VOLUME 83.9 fL (80-100); MEAN PLATELET VOLUME 8.2 fL (9.2-13.0); MONOCYTES 1.6 %; MONOCYTES ABSOLUTE 0.09 10/3/uL (0.21-1.20); NEUTROPHILS 93.4 %; NEUTROPHILS ABSOLUTE 5.14 10/3/uL (2.02-8.40); PLATELET COUNT 226 10/3/uL (150-400); RBC DISTRIBUTION WIDTH 15.5 % (12.0-16.0); RED CELL COUNT 2.05 10/6/uL (4.7-6.1)
[2016-08-15 05:40] LABS: BUN (BLOOD UREA NITROGEN) 14 MG/DL (6-23); CALCIUM, SERUM 8.1 MG/DL (8.5-10.4); CHLORIDE, SERUM 97 MMOL/L (96-112); CO2 (CARBON DIOXIDE) 23 MMOL/L (24-34); CREATININE 0.78 MG/DL (0.70-1.30); GFR AFRICAN AMERICAN 138 ML/MIN (>=60); GFR NON AFRICAN AMERICAN 119 ML/MIN (>=60); GLUCOSE, SERUM 99 MG/DL (60-99); POTASSIUM, SERUM 3.4 MMOL/L (3.5-5.3); SODIUM, SERUM 131 MMOL/L (135-148)
[2016-08-15 05:53] LABS: HEMATOCRIT 17.2 % (40.0-51.0); HEMOGLOBIN 6.2 g/dL (13.6-17.8); WHITE BLOOD CELLS 5.5 10/3/uL (4.5-10.5)
[2016-08-15 05:54] LABS: MANUAL DIFF NO %
[2016-08-15 09:43] LABS: INTERNATIONAL NORMAL RATI 1.3 UNITS (-); PROTIME (NOT ORD) 15.8 SEC (12.0-14.5); TOTAL PROTEIN 5.7 G/DL (6.0-8.5)
[2016-08-15 09:44] LABS: PARTIAL THROMBO TIME 37.6 SEC (22.5-37.2)
[2016-08-15 16:24] LABS: GLUCOSE BODY FL (NOT ORD) 56 MG/DL; PROTEIN BODY FLUID 4.2 G/DL
[2016-08-15 17:14] LABS: LDH BODY FLUID (NOT ORD) 11514 U/L
[2016-08-15 18:19] LABS: BD FL LYMPH (NOT ORD) 12 %; BD FL SOURCE (NOT ORD) PLEURAL; BF BASO (NOT OF) 0 %; BF LARGE MONONUCLEAR 8 %; BODY FLUID EOS (NOT ORD) 0 %; BODY FLUID SEG (NOT ORD) 80 %
[2016-08-15 18:35] LABS: BF TOTAL CELL CT (NOT ORD 42690 /MM3; BODY FLUID RBC (NOT ORD) 511502 /MM3
[2016-08-15 21:15] LABS: HEMATOCRIT 18.6 % (40.0-51.0); HEMOGLOBIN 6.7 g/dL (13.6-17.8)
[2016-08-16 04:55] LABS: HEMOGLOBIN 6.9 g/dL (13.6-17.8); MEAN CORPUS HGB CONC 35.9 g/dL (32.0-36.0); MEAN CORPUSCULAR HEMOGLOB 30.1 pg (26.0-34.0); MEAN CORPUSCULAR VOLUME 83.8 fL (80-100); MEAN PLATELET VOLUME 7.9 fL (9.2-13.0); PLATELET COUNT 160 10/3/uL (150-400); RBC DISTRIBUTION WIDTH 14.8 % (12.0-16.0); RED CELL COUNT 2.29 10/6/uL (4.7-6.1); WHITE BLOOD CELLS 1.9 10/3/uL (4.5-10.5)
[2016-08-16 04:56] LABS: HEMATOCRIT 19.2 % (40.0-51.0); MANUAL DIFF YES %
[2016-08-16 05:08] LABS: BUN (BLOOD UREA NITROGEN) 11 MG/DL (6-23); CALCIUM, SERUM 8.2 MG/DL (8.5-10.4); CHLORIDE, SERUM 97 MMOL/L (96-112); CO2 (CARBON DIOXIDE) 26 MMOL/L (24-34); CREATININE 0.81 MG/DL (0.70-1.30); GFR AFRICAN AMERICAN 136 ML/MIN (>=60); GFR NON AFRICAN AMERICAN 118 ML/MIN (>=60); GLUCOSE, SERUM 88 MG/DL (60-99); POTASSIUM, SERUM 3.4 MMOL/L (3.5-5.3); SODIUM, SERUM 133 MMOL/L (135-148)
[2016-08-16 05:27] LABS: BAND NEUTROPHILS 2 %; LYMPHOCYTES 4 %; LYMPHOCYTES ABSOLUTE (CALC) 0.08 10/3/uL (0.67-4.30); MONOCYTES 3 %; MONOCYTES ABSOLUTE (CALC) 0.06 10/3/uL (0.21-1.20); NEUTROPHILS ABSOLUTE (CALC) 1.77 10/3/uL (2.02-8.40); SEGMENTED NEUTROPHIL (0) 91 %; TOTAL NUCLEATED CELLS 100
[2016-08-16 05:31] LABS: PLATELET ESTIMATE ADQ (ADEQUATE)
[2016-08-16 05:32] LABS: SPHEROCYTES FEW (3-10/OIF)
[2016-08-17 05:19] LABS: MEAN CORPUS HGB CONC 36.7 g/dL (32.0-36.0); MEAN CORPUSCULAR VOLUME 81.6 fL (80-100); MEAN PLATELET VOLUME 8.2 fL (9.2-13.0); PLATELET COUNT 120 10/3/uL (150-400); RBC DISTRIBUTION WIDTH 14.6 % (12.0-16.0); RED CELL COUNT 2.67 10/6/uL (4.7-6.1)
[2016-08-17 05:33] LABS: HEMATOCRIT 21.8 % (40.0-51.0); MANUAL DIFF YES %; WHITE BLOOD CELLS 1.1 10/3/uL (4.5-10.5)
[2016-08-17 06:29] LABS: BAND NEUTROPHILS 7 %; LYMPHOCYTES 22 %; LYMPHOCYTES ABSOLUTE (CALC) 0.24 10/3/uL (0.67-4.30); MONOCYTES 4 %; MONOCYTES ABSOLUTE (CALC) 0.04 10/3/uL (0.21-1.20); NEUTROPHILS ABSOLUTE (CALC) 0.81 10/3/uL (2.02-8.40); PLATELET ESTIMATE SLT DEC (ADEQUATE); SEGMENTED NEUTROPHIL (0) 67 %; TOTAL NUCLEATED CELLS 100
[2016-08-17 06:30] LABS: TOXIC GRANULATION 1+
[2016-08-17 06:31] LABS: POLYCHROMASIA 1+ (2-5/OIF) (0-1/OIF)
[2016-08-17 11:44] LABS: HEMATOCRIT 22.8 % (40.0-51.0); HEMOGLOBIN 8.3 g/dL (13.6-17.8); MEAN CORPUS HGB CONC 36.4 g/dL (32.0-36.0); MEAN CORPUSCULAR HEMOGLOB 30.4 pg (26.0-34.0); MEAN CORPUSCULAR VOLUME 83.5 fL (80-100); PLATELET COUNT 105 10/3/uL (150-400); RBC DISTRIBUTION WIDTH 14.5 % (12.0-16.0); RED CELL COUNT 2.73 10/6/uL (4.7-6.1)
[2016-08-17 11:47] LABS: WHITE BLOOD CELLS 1.1 10/3/uL (4.5-10.5)
[2016-08-17 11:48] LABS: MANUAL DIFF YES %
[2016-08-17 11:54] LABS: BUN (BLOOD UREA NITROGEN) 9 MG/DL (6-23); CALCIUM, SERUM 7.7 MG/DL (8.5-10.4); CHLORIDE, SERUM 98 MMOL/L (96-112); CO2 (CARBON DIOXIDE) 25 MMOL/L (24-34); GFR AFRICAN AMERICAN 145 ML/MIN (>=60); GFR NON AFRICAN AMERICAN 125 ML/MIN (>=60); POTASSIUM, SERUM 3.8 MMOL/L (3.5-5.3); SODIUM, SERUM 131 MMOL/L (135-148)
[2016-08-17 11:59] LABS: GLUCOSE, SERUM 115 MG/DL (60-99)
[2016-08-17 12:19] LABS: BAND NEUTROPHILS 4 %; LYMPHOCYTES 19 %; LYMPHOCYTES ABSOLUTE (CALC) 0.21 10/3/uL (0.67-4.30); MONOCYTES 8 %; MONOCYTES ABSOLUTE (CALC) 0.09 10/3/uL (0.21-1.20); NEUTROPHILS ABSOLUTE (CALC) 0.81 10/3/uL (2.02-8.40); PLATELET ESTIMATE SLT DEC (ADEQUATE); SEGMENTED NEUTROPHIL (0) 69 %; TOTAL NUCLEATED CELLS 75
[2016-08-17 12:20] LABS: POLYCHROMASIA 1+ (2-5/OIF) (0-1/OIF); TOXIC GRANULATION 1+
[2016-08-18 06:28] LABS: HEMATOCRIT 21.3 % (40.0-51.0); HEMOGLOBIN 7.6 g/dL (13.6-17.8); MEAN CORPUS HGB CONC 35.7 g/dL (32.0-36.0); MEAN CORPUSCULAR HEMOGLOB 29.8 pg (26.0-34.0); MEAN CORPUSCULAR VOLUME 83.5 fL (80-100); MEAN PLATELET VOLUME 8.6 fL (9.2-13.0); PLATELET COUNT 105 10/3/uL (150-400); RBC DISTRIBUTION WIDTH 14.8 % (12.0-16.0); RED CELL COUNT 2.55 10/6/uL (4.7-6.1)
[2016-08-18 06:35] LABS: MANUAL DIFF YES %; WHITE BLOOD CELLS 1.5 10/3/uL (4.5-10.5)
[2016-08-18 06:50] LABS: BUN (BLOOD UREA NITROGEN) 8 MG/DL (6-23); CALCIUM, SERUM 8.5 MG/DL (8.5-10.4); CHLORIDE, SERUM 100 MMOL/L (96-112); CO2 (CARBON DIOXIDE) 25 MMOL/L (24-34); CREATININE 0.83 MG/DL (0.70-1.30); GFR AFRICAN AMERICAN 135 ML/MIN (>=60); GFR NON AFRICAN AMERICAN 116 ML/MIN (>=60); GLUCOSE, SERUM 105 MG/DL (60-99); POTASSIUM, SERUM 3.6 MMOL/L (3.5-5.3); SODIUM, SERUM 136 MMOL/L (135-148)
[2016-08-18 08:11] LABS: BAND NEUTROPHILS 14 %; LYMPHOCYTES 24 %; LYMPHOCYTES ABSOLUTE (CALC) 0.36 10/3/uL (0.67-4.30); MONOCYTES 12 %; MONOCYTES ABSOLUTE (CALC) 0.18 10/3/uL (0.21-1.20); NEUTROPHILS ABSOLUTE (CALC) 0.96 10/3/uL (2.02-8.40); PLATELET ESTIMATE SLT DEC (ADEQUATE); SEGMENTED NEUTROPHIL (0) 50 %; TOTAL NUCLEATED CELLS 100
[2016-08-18 08:12] LABS: RBC MORPHOLOGY NORM (NORMAL)
[2016-08-19 06:12] LABS: HEMOGLOBIN 7.2 g/dL (13.6-17.8); MEAN CORPUS HGB CONC 35.1 g/dL (32.0-36.0); MEAN CORPUSCULAR HEMOGLOB 30.1 pg (26.0-34.0); MEAN CORPUSCULAR VOLUME 85.8 fL (80-100); PLATELET COUNT 86 10/3/uL (150-400); RBC DISTRIBUTION WIDTH 14.9 % (12.0-16.0); RED CELL COUNT 2.39 10/6/uL (4.7-6.1)
[2016-08-19 06:22] LABS: HEMATOCRIT 20.5 % (40.0-51.0); WHITE BLOOD CELLS 1.1 10/3/uL (4.5-10.5)
[2016-08-19 06:23] LABS: MANUAL DIFF YES %
[2016-08-19 07:11] LABS: BAND NEUTROPHILS 13 %; LYMPHOCYTES 21 %; LYMPHOCYTES ABSOLUTE (CALC) 0.23 10/3/uL (0.67-4.30); MONOCYTES 7 %; MONOCYTES ABSOLUTE (CALC) 0.08 10/3/uL (0.21-1.20); NEUTROPHILS ABSOLUTE (CALC) 0.79 10/3/uL (2.02-8.40); PLATELET ESTIMATE DEC (ADEQUATE); SEGMENTED NEUTROPHIL (0) 59 %; TOTAL NUCLEATED CELLS 100
[2016-08-19 07:12] LABS: RBC MORPHOLOGY NORM (NORMAL)
[2016-08-19] MEDS ORDERED: PCET PO (08:38)
[2016-08-20 04:23] LABS: HEMATOCRIT 21.7 % (40.0-51.0); HEMOGLOBIN 7.7 g/dL (13.6-17.8); MEAN CORPUS HGB CONC 35.5 g/dL (32.0-36.0); MEAN CORPUSCULAR HEMOGLOB 30.2 pg (26.0-34.0); MEAN CORPUSCULAR VOLUME 85.1 fL (80-100); MEAN PLATELET VOLUME 9.1 fL (9.2-13.0); PLATELET COUNT 86 10/3/uL (150-400); RBC DISTRIBUTION WIDTH 14.7 % (12.0-16.0); RED CELL COUNT 2.55 10/6/uL (4.7-6.1)
[2016-08-20 04:24] LABS: MANUAL DIFF YES %
[2016-08-20 04:35] LABS: BUN (BLOOD UREA NITROGEN) 7 MG/DL (6-23); CALCIUM, SERUM 8.5 MG/DL (8.5-10.4); CHLORIDE, SERUM 98 MMOL/L (96-112); CO2 (CARBON DIOXIDE) 25 MMOL/L (24-34); CREATININE 0.76 MG/DL (0.70-1.30); GFR AFRICAN AMERICAN 140 ML/MIN (>=60); GFR NON AFRICAN AMERICAN 121 ML/MIN (>=60); GLUCOSE, SERUM 98 MG/DL (60-99); SODIUM, SERUM 136 MMOL/L (135-148)
[2016-08-20 07:21] LABS: BAND NEUTROPHILS 7 %; LYMPHOCYTES 20 %; MONOCYTES 5 %; MONOCYTES ABSOLUTE (CALC) 0.05 10/3/uL (0.21-1.20); NEUTROPHILS ABSOLUTE (CALC) 0.75 10/3/uL (2.02-8.40); PLATELET ESTIMATE DEC (ADEQUATE); RBC MORPHOLOGY NORM (NORMAL); SEGMENTED NEUTROPHIL (0) 68 %; TOTAL NUCLEATED CELLS 100
[2016-08-21 05:42] LABS: HEMOGLOBIN 7.3 g/dL (13.6-17.8); MEAN CORPUS HGB CONC 35.4 g/dL (32.0-36.0); MEAN CORPUSCULAR HEMOGLOB 29.9 pg (26.0-34.0); MEAN CORPUSCULAR VOLUME 84.4 fL (80-100); MEAN PLATELET VOLUME 9.1 fL (9.2-13.0); PLATELET COUNT 83 10/3/uL (150-400); RBC DISTRIBUTION WIDTH 14.7 % (12.0-16.0); RED CELL COUNT 2.44 10/6/uL (4.7-6.1)
[2016-08-21 05:47] LABS: HEMATOCRIT 20.6 % (40.0-51.0)
[2016-08-21 05:50] LABS: MANUAL DIFF YES %
[2016-08-21 06:33] LABS: BAND NEUTROPHILS 5 %; LYMPHOCYTES 35 %; LYMPHOCYTES ABSOLUTE (CALC) 0.35 10/3/uL (0.67-4.30); MONOCYTES 15 %; MONOCYTES ABSOLUTE (CALC) 0.15 10/3/uL (0.21-1.20); PLATELET ESTIMATE DEC (ADEQUATE); SEGMENTED NEUTROPHIL (0) 45 %; TOTAL NUCLEATED CELLS 100
[2016-08-21 06:34] LABS: MICROCYTES 1+ (5-10/OIF) (0-5/OIF)
[2016-08-22 05:49] LABS: MEAN CORPUS HGB CONC 35.6 g/dL (32.0-36.0); MEAN CORPUSCULAR HEMOGLOB 30.3 pg (26.0-34.0); MEAN PLATELET VOLUME 9.8 fL (9.2-13.0); PLATELET COUNT 94 10/3/uL (150-400); RBC DISTRIBUTION WIDTH 14.6 % (12.0-16.0)
[2016-08-22 05:58] LABS: HEMOGLOBIN 8.9 g/dL (13.6-17.8); RED CELL COUNT 2.94 10/6/uL (4.7-6.1)
[2016-08-22 05:59] LABS: BUN (BLOOD UREA NITROGEN) 9 MG/DL (6-23); CALCIUM, SERUM 8.4 MG/DL (8.5-10.4); CHLORIDE, SERUM 97 MMOL/L (96-112); CO2 (CARBON DIOXIDE) 28 MMOL/L (24-34); CREATININE 0.73 MG/DL (0.70-1.30); GFR AFRICAN AMERICAN 142 ML/MIN (>=60); GFR NON AFRICAN AMERICAN 123 ML/MIN (>=60); GLUCOSE, SERUM 97 MG/DL (60-99); MANUAL DIFF YES %; POTASSIUM, SERUM 4.1 MMOL/L (3.5-5.3); SODIUM, SERUM 134 MMOL/L (135-148)
[2016-08-22 07:08] LABS: LYMPHOCYTES 37 %; LYMPHOCYTES ABSOLUTE (CALC) 0.37 10/3/uL (0.67-4.30); MONOCYTES 17 %; MONOCYTES ABSOLUTE (CALC) 0.17 10/3/uL (0.21-1.20); NEUTROPHILS ABSOLUTE (CALC) 0.46 10/3/uL (2.02-8.40); PLATELET ESTIMATE DEC (ADEQUATE); RBC MORPHOLOGY NORM (NORMAL); SEGMENTED NEUTROPHIL (0) 46 %; TOTAL NUCLEATED CELLS 100
[2016-08-23 05:16] LABS: HEMATOCRIT 23.5 % (40.0-51.0); HEMOGLOBIN 8.3 g/dL (13.6-17.8); MEAN CORPUS HGB CONC 35.3 g/dL (32.0-36.0); MEAN CORPUSCULAR HEMOGLOB 30.1 pg (26.0-34.0); MEAN CORPUSCULAR VOLUME 85.1 fL (80-100); MEAN PLATELET VOLUME 9.5 fL (9.2-13.0); RBC DISTRIBUTION WIDTH 14.8 % (12.0-16.0); RED CELL COUNT 2.76 10/6/uL (4.7-6.1)
[2016-08-23 05:17] LABS: MANUAL DIFF YES %; PLATELET COUNT 123 10/3/uL (150-400); WHITE BLOOD CELLS 0.9 10/3/uL (4.5-10.5)
[2016-08-23 05:38] LABS: LYMPHOCYTES 39 %; LYMPHOCYTES ABSOLUTE (CALC) 0.35 10/3/uL (0.67-4.30); MONOCYTES 21 %; MONOCYTES ABSOLUTE (CALC) 0.19 10/3/uL (0.21-1.20); NEUTROPHILS ABSOLUTE (CALC) 0.36 10/3/uL (2.02-8.40); SEGMENTED NEUTROPHIL (0) 40 %; TOTAL NUCLEATED CELLS 100
[2016-08-23 05:39] LABS: PLATELET ESTIMATE DEC (ADEQUATE)
[2016-08-24 05:44] LABS: HEMATOCRIT 23.6 % (40.0-51.0); HEMOGLOBIN 8.3 g/dL (13.6-17.8); MEAN CORPUS HGB CONC 35.2 g/dL (32.0-36.0); MEAN CORPUSCULAR VOLUME 85.2 fL (80-100); MEAN PLATELET VOLUME 9.2 fL (9.2-13.0); NUCLEATED RED BLOOD CELLS 2.6 /100WBC (0-0); RBC DISTRIBUTION WIDTH 14.6 % (12.0-16.0); RED CELL COUNT 2.77 10/6/uL (4.7-6.1)
[2016-08-24 05:45] LABS: MANUAL DIFF YES %; PLATELET COUNT 170 10/3/uL (150-400); WHITE BLOOD CELLS 0.9 10/3/uL (4.5-10.5)
[2016-08-24 05:47] LABS: BUN (BLOOD UREA NITROGEN) 8 MG/DL (6-23); CHLORIDE, SERUM 97 MMOL/L (96-112); CO2 (CARBON DIOXIDE) 27 MMOL/L (24-34); GFR AFRICAN AMERICAN 137 ML/MIN (>=60); GFR NON AFRICAN AMERICAN 118 ML/MIN (>=60); GLUCOSE, SERUM 95 MG/DL (60-99); POTASSIUM, SERUM 4.3 MMOL/L (3.5-5.3); SODIUM, SERUM 135 MMOL/L (135-148)
[2016-08-24 06:00] LABS: LYMPHOCYTES 50 %; LYMPHOCYTES ABSOLUTE (CALC) 0.45 10/3/uL (0.67-4.30); MONOCYTES 40 %; MONOCYTES ABSOLUTE (CALC) 0.36 10/3/uL (0.21-1.20); NEUTROPHILS ABSOLUTE (CALC) 0.09 10/3/uL (2.02-8.40); SEGMENTED NEUTROPHIL (0) 10 %; TOTAL NUCLEATED CELLS 100
[2016-08-24 06:01] LABS: PLATELET ESTIMATE ADQ (ADEQUATE); POLYCHROMASIA 1+ (2-5/OIF) (0-1/OIF)
[2016-08-25 05:47] LABS: HEMATOCRIT 23.5 % (40.0-51.0); HEMOGLOBIN 8.2 g/dL (13.6-17.8); MEAN CORPUS HGB CONC 34.9 g/dL (32.0-36.0); MEAN CORPUSCULAR VOLUME 86.1 fL (80-100); MEAN PLATELET VOLUME 9.3 fL (9.2-13.0); NUCLEATED RED BLOOD CELLS 2.1 /100WBC (0-0); PLATELET COUNT 215 10/3/uL (150-400); RBC DISTRIBUTION WIDTH 14.7 % (12.0-16.0); RED CELL COUNT 2.73 10/6/uL (4.7-6.1)
[2016-08-25 05:52] LABS: WHITE BLOOD CELLS 1.1 10/3/uL (4.5-10.5)
[2016-08-25 05:53] LABS: MANUAL DIFF YES %
[2016-08-25 07:08] LABS: BAND NEUTROPHILS 4 %; IMMATURE GRANS ABSOLUTE (CALC) 0.07 10/3/uL (0.0-0.11); LYMPHOCYTES 55 %; LYMPHOCYTES ABSOLUTE (CALC) 0.61 10/3/uL (0.67-4.30); METAMYELOCYTES 3 %; MONOCYTES 24 %; MONOCYTES ABSOLUTE (CALC) 0.26 10/3/uL (0.21-1.20); MYELOCYTES 3 %; NEUTROPHILS ABSOLUTE (CALC) 0.17 10/3/uL (2.02-8.40); PLATELET ESTIMATE ADQ (ADEQUATE); RBC MORPHOLOGY NORM (NORMAL); SEGMENTED NEUTROPHIL (0) 11 %; TOTAL NUCLEATED CELLS 100
[2016-08-26 06:44] LABS: HEMATOCRIT 24.6 % (40.0-51.0); HEMOGLOBIN 8.4 g/dL (13.6-17.8); MEAN CORPUS HGB CONC 34.1 g/dL (32.0-36.0); MEAN CORPUSCULAR HEMOGLOB 29.8 pg (26.0-34.0); MEAN CORPUSCULAR VOLUME 87.2 fL (80-100); MEAN PLATELET VOLUME 9.2 fL (9.2-13.0); NUCLEATED RED BLOOD CELLS 1.4 /100WBC (0-0); RBC DISTRIBUTION WIDTH 15.5 % (12.0-16.0); RED CELL COUNT 2.82 10/6/uL (4.7-6.1)
[2016-08-26 06:47] LABS: MANUAL DIFF YES %; PLATELET COUNT 286 10/3/uL (150-400); WHITE BLOOD CELLS 6.1 10/3/uL (4.5-10.5)
[2016-08-26 06:56] LABS: BAND NEUTROPHILS 28 %; EOSINOPHILS 1 %; EOSINOPHILS ABSOLUTE (CALC) 0.06 10/3/uL (0.0-0.53); IMMATURE GRANS ABSOLUTE (CALC) 0.31 10/3/uL (0.0-0.11); LYMPHOCYTES 16 %; LYMPHOCYTES ABSOLUTE (CALC) 0.98 10/3/uL (0.67-4.30); METAMYELOCYTES 4 %; MONOCYTES 5 %; MONOCYTES ABSOLUTE (CALC) 0.31 10/3/uL (0.21-1.20); MYELOCYTES 1 %; NEUTROPHILS ABSOLUTE (CALC) 4.45 10/3/uL (2.02-8.40); PLATELET ESTIMATE ADQ (ADEQUATE); SEGMENTED NEUTROPHIL (0) 45 %; TOTAL NUCLEATED CELLS 100
[2016-08-26 06:57] LABS: SPHEROCYTES FEW (3-10/OIF)
[2016-08-27 05:49] LABS: HEMATOCRIT 25.4 % (40.0-51.0); HEMOGLOBIN 8.6 g/dL (13.6-17.8); MEAN CORPUS HGB CONC 33.9 g/dL (32.0-36.0); MEAN CORPUSCULAR VOLUME 88.5 fL (80-100); MEAN PLATELET VOLUME 8.8 fL (9.2-13.0); PLATELET COUNT 366 10/3/uL (150-400); RBC DISTRIBUTION WIDTH 15.5 % (12.0-16.0); RED CELL COUNT 2.87 10/6/uL (4.7-6.1)
[2016-08-27 05:50] LABS: MANUAL DIFF YES %; WHITE BLOOD CELLS 12.7 10/3/uL (4.5-10.5)
[2016-08-27 05:54] LABS: BUN (BLOOD UREA NITROGEN) 5 MG/DL (6-23); CHLORIDE, SERUM 104 MMOL/L (96-112); CO2 (CARBON DIOXIDE) 25 MMOL/L (24-34); GFR AFRICAN AMERICAN 115 ML/MIN (>=60); GFR NON AFRICAN AMERICAN 99 ML/MIN (>=60); GLUCOSE, SERUM 99 MG/DL (60-99); POTASSIUM, SERUM 4.1 MMOL/L (3.5-5.3); SODIUM, SERUM 138 MMOL/L (135-148)
[2016-08-27 05:59] LABS: CALCIUM, SERUM 7.8 MG/DL (8.5-10.4)
[2016-08-27 06:19] LABS: BAND NEUTROPHILS 58 %; IMMATURE GRANS ABSOLUTE (CALC) 0.51 10/3/uL (0.0-0.11); LYMPHOCYTES 7 %; LYMPHOCYTES ABSOLUTE (CALC) 0.89 10/3/uL (0.67-4.30); METAMYELOCYTES 3 %; MONOCYTES 11 %; MYELOCYTES 1 %; NEUTROPHILS ABSOLUTE (CALC) 9.91 10/3/uL (2.02-8.40); PLATELET ESTIMATE ADQ (ADEQUATE); POLYCHROMASIA 1+ (2-5/OIF) (0-1/OIF); SEGMENTED NEUTROPHIL (0) 20 %; TOTAL NUCLEATED CELLS 100; TOXIC GRANULATION 1+; VACUOLATED NEUTROPHILES OCC
[2016-08-28 06:16] LABS: HEMOGLOBIN 7.8 g/dL (13.6-17.8); MEAN CORPUS HGB CONC 34.4 g/dL (32.0-36.0); MEAN CORPUSCULAR HEMOGLOB 30.1 pg (26.0-34.0); MEAN CORPUSCULAR VOLUME 87.6 fL (80-100); MEAN PLATELET VOLUME 8.8 fL (9.2-13.0); PLATELET COUNT 374 10/3/uL (150-400); RBC DISTRIBUTION WIDTH 15.9 % (12.0-16.0); RED CELL COUNT 2.59 10/6/uL (4.7-6.1); WHITE BLOOD CELLS 8.5 10/3/uL (4.5-10.5)
[2016-08-28 06:19] LABS: HEMATOCRIT 22.7 % (40.0-51.0); MANUAL DIFF YES %
[2016-08-28 06:50] LABS: BAND NEUTROPHILS 39 %; IMMATURE GRANS ABSOLUTE (CALC) 0.94 10/3/uL (0.0-0.11); LYMPHOCYTES 5 %; LYMPHOCYTES ABSOLUTE (CALC) 0.43 10/3/uL (0.67-4.30); METAMYELOCYTES 8 %; MONOCYTES 12 %; MONOCYTES ABSOLUTE (CALC) 1.02 10/3/uL (0.21-1.20); MYELOCYTES 3 %; NEUTROPHILS ABSOLUTE (CALC) 6.12 10/3/uL (2.02-8.40); PLATELET ESTIMATE ADQ (ADEQUATE); POLYCHROMASIA 1+ (2-5/OIF) (0-1/OIF); SEGMENTED NEUTROPHIL (0) 33 %; TOTAL NUCLEATED CELLS 100; VACUOLATED NEUTROPHILES OCC
[2016-08-28 06:51] LABS: TEARDROP SHAPED RBCS OCC (0-2/OIF); TOXIC GRANULATION 1+
[2016-08-29 05:06] LABS: HEMOGLOBIN 8.1 g/dL (13.6-17.8); MEAN CORPUS HGB CONC 33.8 g/dL (32.0-36.0); MEAN CORPUSCULAR HEMOGLOB 30.2 pg (26.0-34.0); MEAN CORPUSCULAR VOLUME 89.6 fL (80-100); PLATELET COUNT 302 10/3/uL (150-400); RBC DISTRIBUTION WIDTH 15.9 % (12.0-16.0); RED CELL COUNT 2.68 10/6/uL (4.7-6.1); WHITE BLOOD CELLS 5.8 10/3/uL (4.5-10.5)
[2016-08-29 05:23] LABS: MANUAL DIFF YES %
[2016-08-29 06:40] LABS: BAND NEUTROPHILS 8 %; BASOPHILS 1 %; BASOPHILS ABSOLUTE (CALC) 0.06 10/3/uL (0.0-0.16); IMMATURE GRANS ABSOLUTE (CALC) 0.52 10/3/uL (0.0-0.11); LYMPHOCYTES 16 %; LYMPHOCYTES ABSOLUTE (CALC) 0.93 10/3/uL (0.67-4.30); METAMYELOCYTES 6 %; MONOCYTES 7 %; MONOCYTES ABSOLUTE (CALC) 0.41 10/3/uL (0.21-1.20); MYELOCYTES 3 %; NEUTROPHILS ABSOLUTE (CALC) 3.89 10/3/uL (2.02-8.40); PLATELET ESTIMATE ADQ (ADEQUATE); POLYCHROMASIA 1+ (2-5/OIF) (0-1/OIF); SEGMENTED NEUTROPHIL (0) 59 %; TOTAL NUCLEATED CELLS 100
[2016-08-29] MEDS ORDERED: SEPTRA DS1 TAB PO (08:50)
[2017-01-25] MEDS ORDERED: PR25 PO (10:44)
[2017-01-25] MEDS ORDERED: NORCO1 TAB PO (10:46)
== END 2016-08-29 12:40 | disposition home or self-care (01) | DRG 853 ==
LOC: ER 10:27 → CDU1 12:02 → 4EA 08-14 11:37 → SDC/OF 08-17 11:50 → 5NO 08-17 12:51 → 4EA 08-22 17:23
PROVIDERS: Family Medicine; Hospitalist; Internal Medicine; Internal Medicine Hematology & Oncology; Internal Medicine Infectious Disease; Thoracic Surgery (Cardiothoracic Vascular Surgery)
PROC: 30233N1 Transfusion of Nonautologous Red Blood Cells into Peripheral Vein, Percutaneous Approach (ICD-10-PCS; 2016-08-15)
PROC: 3E0T3BZ Introduction of Anesthetic Agent into Peripheral Nerves and Plexi, Percutaneous Approach (ICD-10-PCS; 2016-08-17)
PROC: 0BDP4ZZ Extraction of Left Pleura, Percutaneous Endoscopic Approach (ICD-10-PCS; principal; 2016-08-17 08:15)
DX: A41.9 Sepsis, unspecified organism (principal); J96.01 Acute respiratory failure with hypoxia; J86.9 Pyothorax without fistula; J90 Pleural effusion, not elsewhere classified; J18.9 Pneumonia, unspecified organism; D61.810 Antineoplastic chemotherapy induced pancytopenia; N17.9 Acute kidney failure, unspecified; C78.00 Secondary malignant neoplasm of unspecified lung; I27.82 Chronic pulmonary embolism; R65.20 Severe sepsis without septic shock; G47.33 Obstructive sleep apnea (adult) (pediatric); C62.90 Malignant neoplasm of unspecified testis, unspecified whether descended or undescended; Z99.81 Dependence on supplemental oxygen; Z79.01 Long term (current) use of anticoagulants; Y95 Nosocomial condition
CPT/HCPCS: 32555; 36415; 71010; 71020; 71250; 71275; 80048; 80053; 80202; 82330; 82803; 82945; 82947; 82962; 83615; 83735; 84132; 84155; 84157; 84295; 84484; 85014; 85018; 85025; 85049; 85610; 85730; 86850; 86900; 86901; 86920; 87015; 87070; 87075; 87077; 87102; 87116; 87186; 87205; 88112; 88305; 89051; 93005; 94640; 96361; 96374; 96375; 96376; 99285; A9270-GY; C1751; C1769; J0330; J0690; J0692; J1170; J1447; J1885; J2250; J2370; J2405; J2710; J2795; J3010; J3370; P9016; P9040; P9045; Q9967

== ENCOUNTER 2016-10-25 06:25 | Inpatient (IN) | payer BC ==
[2016-10-21 17:39] LABS: BASOPHILS 0.2 %; BASOPHILS ABSOLUTE 0.01 10/3/uL (0.0-0.16); EOSINOPHILS 3.3 %; EOSINOPHILS ABSOLUTE 0.16 10/3/uL (0.0-0.53); HEMATOCRIT 34.9 % (40.0-51.0); HEMOGLOBIN 11.9 g/dL (13.6-17.8); IMMATURE GRANULOCYTES 0.2 %; IMMATURE GRANULOCYTES ABSOLUTE 0.01 10/3/uL (0.0-0.11); LYMPHOCYTES 25.2 %; LYMPHOCYTES ABSOLUTE 1.22 10/3/uL (0.67-4.30); MANUAL DIFF NO %; MEAN CORPUS HGB CONC 34.1 g/dL (32.0-36.0); MEAN CORPUSCULAR VOLUME 96.7 fL (80-100); MEAN PLATELET VOLUME 8.4 fL (9.2-13.0); MONOCYTES 10.5 %; MONOCYTES ABSOLUTE 0.51 10/3/uL (0.21-1.20); NEUTROPHILS 60.6 %; NEUTROPHILS ABSOLUTE 2.93 10/3/uL (2.02-8.40); PLATELET COUNT 298 10/3/uL (150-400); RBC DISTRIBUTION WIDTH 14.8 % (12.0-16.0); RED CELL COUNT 3.61 10/6/uL (4.7-6.1); WHITE BLOOD CELLS 4.8 10/3/uL (4.5-10.5)
[2016-10-21 17:47] LABS: INTERNATIONAL NORMAL RATI 1.1 UNITS (-)
[2016-10-21 17:52] LABS: CHLORIDE, SERUM 105 MMOL/L (96-112); CO2 (CARBON DIOXIDE) 27 MMOL/L (24-34); CREATININE 1.31 MG/DL (0.70-1.30); GFR AFRICAN AMERICAN 83 ML/MIN (>=60); GFR NON AFRICAN AMERICAN 72 ML/MIN (>=60); GLUCOSE, SERUM 94 MG/DL (60-99); POTASSIUM, SERUM 4.1 MMOL/L (3.5-5.3); SGOT(AST) 10 U/L (5-40); SGPT(ALT) 26 U/L (5-65); SODIUM, SERUM 139 MMOL/L (135-148); TOTAL BILIRUBIN 0.6 MG/DL (0-1.2); TOTAL PROTEIN 6.7 G/DL (6.0-8.5)
[2016-10-21 17:54] LABS: ASCORBIC ACID (UR NOT ORDER) NEG (NEG); BILIRUBIN, URINE NEGATIVE (NEG); KETONE, URINE NEGATIVE (NEG); LEUKOCYTE ESTERASE(NOT OR NEG (NEG); WBC (NOT ORDERED) (RFLEX) 2 (0-5)
[2016-10-21 17:55] LABS: A/G RATIO 1.5 (0.7-1.9); ALKALINE PHOSPHATASE 53 U/L (45-117); BUN (BLOOD UREA NITROGEN) 15 MG/DL (6-23); GLOBULIN 2.7 G/DL (2.5-4.1)
--- NOTE | ~2016-10-25 | OP ---
Record Of Operation [facility] [address] [place]. [address] NAME: RADHA HENDERSON II : 81 STATUS : ADM IN PAT#: [id number] AGE: 30 ADM/REG DATE : 10/25/16 MR#: [id number] REPORT SERV DATE: 10/25/16 DICTATED BY: RADHA HURD JR. 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 NAME OF OPERATION: Bronchoscopy, right thoracoscopy with wedge excision of right middle lobe, intercostal nerve block. RESIDENT SURGEON: Dr. Juan F Nugent. STONEWORK TRACER: Gi Stanton. ANESTHESIA: General endotracheal. FINDINGS: The patient was noted to have a hard nodule where the residual tumor was in the right middle lobe. It is difficult to tell whether there is a viable tumor or not left in this location. There were also multiple other little 1 and 2 mm nodules within the middle lobe. We wedged out a generous section of the middle lobe removing approximately 50% of the lung volume. On frozen section, we could see areas of necrosis but no viable tumor. The main nodule which was the easily visible tumor looked like it was all fibrosed or calcified tissue with no viable tumor. Additional sites were being performed. I did not see any significant mediastinal lymphadenopathy. I could not justify doing a right middle lobectomy. We felt we would stop at this point and let the pathologist complete a thorough examination of the lung tissue. The overall impression was there was 1 dominant residual nodule that likely did not have viable tumor left within it. There was also a miliary pattern of other small nodules within the lung tissue that had some areas of necrosis but no viable tumor. All margins were negative as far as the primary tumor goes. DETAILS OF OPERATION: After adequate general anesthesia, the patient was intubated. Bronchoscopy was performed noting no endobronchial lesions. A left-sided double-lumen endotracheal tube was then placed. The patient was then positioned in the left lateral decubitus position. The right chest was prepped and draped in a routine sterile fashion. A small incision was made overlying the lower intercostal space. A separate anterior trocar incision was also made. Through these two incision sites, the above findings were noted. The dominant nodule that was residual in the right middle lobe was easily located. There were some scattered little BB sized nodules in the right middle lobe that were of unknown significance. A generous portion of the right middle lobe was then wedged out with multiple firings of ANG stapler with tissue reinforcements. The specimen was withdrawn through the anterior trocar site in a protective glove specimen bag. Frozen section on these areas showed the above findings. We felt it was best to stop at this point. We did not proceed on with a completion middle lobectomy because of the unknown significance of our pathology report. An intercostal nerve block was performed. A 20-Gh[place]ian chest tube was placed. The Record Of Operation [address] [place]. [address] NAME: RADHA HENDERSON LUZ : 81 STATUS : ADM IN [facility]#: [id number] AGE: 30 ADM/REG DATE : 10/25/16 MR#: [id number] REPORT SERV DATE: 10/25/16 DICTATED BY: RADHA HURD JR. DATE: 10/25/16 REPORT STATUS : Draft TRANSCRIBED BY: YVROSE DATE: 10/25/16 lung was reinflated. The trocar sites were closed with running Vicryl sutures. The skin was closed with running monofilament suture. A Dermabond dressing was applied and the procedure was terminated at this point. The patient tolerated the procedure well and taken back to the recovery room in stable condition. JOSE MARIA/YVROSE Radha Hurd Jr., M.D. / [id number] CC: Briana Quinn Jr., M.D.
[~2016-10-25 06:25] MED LIST changes: +MAALOX PO; +PCET PO; +SEPTRA DS1 TAB PO
[2016-10-25 12:45] LABS: BASOPHILS 0.2 %; BASOPHILS ABSOLUTE 0.01 10/3/uL (0.0-0.16); EOSINOPHILS 1.1 %; EOSINOPHILS ABSOLUTE 0.06 10/3/uL (0.0-0.53); HEMATOCRIT 32.7 % (40.0-51.0); HEMOGLOBIN 11.3 g/dL (13.6-17.8); IMMATURE GRANULOCYTES 0.2 %; IMMATURE GRANULOCYTES ABSOLUTE 0.01 10/3/uL (0.0-0.11); LYMPHOCYTES ABSOLUTE 0.44 10/3/uL (0.67-4.30); MEAN CORPUS HGB CONC 34.6 g/dL (32.0-36.0); MEAN CORPUSCULAR HEMOGLOB 33.6 pg (26.0-34.0); MEAN CORPUSCULAR VOLUME 97.3 fL (80-100); MEAN PLATELET VOLUME 8.1 fL (9.2-13.0); MONOCYTES ABSOLUTE 0.11 10/3/uL (0.21-1.20); NEUTROPHILS 88.5 %; NEUTROPHILS ABSOLUTE 4.88 10/3/uL (2.02-8.40); PLATELET COUNT 272 10/3/uL (150-400); RBC DISTRIBUTION WIDTH 14.6 % (12.0-16.0); RED CELL COUNT 3.36 10/6/uL (4.7-6.1); WHITE BLOOD CELLS 5.5 10/3/uL (4.5-10.5)
[2016-10-25 12:46] LABS: MANUAL DIFF NO %
[2016-10-25 12:58] LABS: CALCIUM, SERUM 8.9 MG/DL (8.5-10.4); CHLORIDE, SERUM 105 MMOL/L (96-112); CO2 (CARBON DIOXIDE) 25 MMOL/L (24-34); CREATININE 1.21 MG/DL (0.70-1.30); GFR AFRICAN AMERICAN 91 ML/MIN (>=60); GFR NON AFRICAN AMERICAN 79 ML/MIN (>=60); GLUCOSE, SERUM 109 MG/DL (60-99); POTASSIUM, SERUM 4.7 MMOL/L (3.5-5.3); SODIUM, SERUM 140 MMOL/L (135-148)
[2016-10-25 13:01] LABS: BUN (BLOOD UREA NITROGEN) 20 MG/DL (6-23)
[2016-10-26 05:53] LABS: BASOPHILS 0 %; EOSINOPHILS 0 %; HEMATOCRIT 32.5 % (40.0-51.0); HEMOGLOBIN 11.1 g/dL (13.6-17.8); IMMATURE GRANULOCYTES 0.3 %; IMMATURE GRANULOCYTES ABSOLUTE 0.03 10/3/uL (0.0-0.11); LYMPHOCYTES 6.6 %; LYMPHOCYTES ABSOLUTE 0.78 10/3/uL (0.67-4.30); MANUAL DIFF NO %; MEAN CORPUS HGB CONC 34.2 g/dL (32.0-36.0); MEAN CORPUSCULAR HEMOGLOB 33.8 pg (26.0-34.0); MEAN CORPUSCULAR VOLUME 99.1 fL (80-100); MEAN PLATELET VOLUME 8.3 fL (9.2-13.0); MONOCYTES 5.6 %; MONOCYTES ABSOLUTE 0.66 10/3/uL (0.21-1.20); NEUTROPHILS 87.5 %; PLATELET COUNT 330 10/3/uL (150-400); RBC DISTRIBUTION WIDTH 14.6 % (12.0-16.0); RED CELL COUNT 3.28 10/6/uL (4.7-6.1); WHITE BLOOD CELLS 11.9 10/3/uL (4.5-10.5)
[2016-10-26 06:07] LABS: BUN (BLOOD UREA NITROGEN) 20 MG/DL (6-23); CALCIUM, SERUM 9.2 MG/DL (8.5-10.4); CHLORIDE, SERUM 104 MMOL/L (96-112); CO2 (CARBON DIOXIDE) 24 MMOL/L (24-34); CREATININE 1.48 MG/DL (0.70-1.30); GFR AFRICAN AMERICAN 72 ML/MIN (>=60); GFR NON AFRICAN AMERICAN 62 ML/MIN (>=60); POTASSIUM, SERUM 4.2 MMOL/L (3.5-5.3); SODIUM, SERUM 138 MMOL/L (135-148)
[2016-10-26 06:10] LABS: GLUCOSE, SERUM 136 MG/DL (60-99)
[2016-10-26] MEDS ORDERED: MIRALAX POWDER1 PKT PO (08:46)
[2017-01-25] MEDS ORDERED: PR25 PO (10:44)
[2017-01-25] MEDS ORDERED: NORCO1 TAB PO (10:46)
== END 2016-10-27 12:52 | disposition home or self-care (01) | DRG 165 ==
LOC: SDC/OF 06:25 → PACU 12:10 → 5NO 14:00
PROVIDERS: Thoracic Surgery (Cardiothoracic Vascular Surgery)
PROC: 3E0T3BZ Introduction of Anesthetic Agent into Peripheral Nerves and Plexi, Percutaneous Approach (ICD-10-PCS; 2016-10-25)
PROC: 0BJ08ZZ Inspection of Tracheobronchial Tree, Via Natural or Artificial Opening Endoscopic (ICD-10-PCS; 2016-10-25)
PROC: 0BBD4ZZ Excision of Right Middle Lung Lobe, Percutaneous Endoscopic Approach (ICD-10-PCS; principal; 2016-10-25 08:15)
DX: C78.01 Secondary malignant neoplasm of right lung (principal); C62.90 Malignant neoplasm of unspecified testis, unspecified whether descended or undescended; N18.3 Chronic kidney disease, stage 3 (moderate); Z92.21 Personal history of antineoplastic chemotherapy; Z86.711 Personal history of pulmonary embolism
CPT/HCPCS: 36415; 71010; 80048; 80053; 81001; 82962; 83036; 85025; 85610; 86850; 86900; 86901; 87641; 88307; 88331; 88332; 93005; 94060; 94640; 94729; A9270-GY; J0690; J2250; J2370; J2405; J2710; J2795; J3010